=== PATIENT | male | born 1950 | race Caucasian/White ===

== ENCOUNTER → 2017-07-13 10:34 | Outpatient (CLI) | payer MEDICARE, OTHER, SELFPAY ==
[2017-07-13 13:57] LABS: Absolute Lymphocyte Count 1.88 X10^3/ul (0.83-4.51); Absolute Neutrophil Count 6.4 X10^3/uL (2.0-7.7); Basophil# 0.03 X10^3/uL; Basophil% 0.3 % (0-1); Eosinophil# 0.15 X10^3/uL; Eosinophils% 1.6 % (0-5); Hematocrit 43.2 % (40-54); Hemoglobin 14.5 g/dl (13.0-16.5); Lymphocyte # 1.88 X10^3/ul (4.0); Mean Corp Hgb Conc 33.6 g/gl (32-36); Mean Corpuscular Hgb 30.1 pg (27.0-32.0); Mean Corpuscular Volume 89.8 fL (80-94); Mean Platelet Vol. 9.9 fl (6.2-12.0); Monocyte# 0.91 X10^3/uL; Monocyte% 9.7 % (0-10); Neutrophil # 6.41 X10^3/uL (2.7-7.7); Neutrophil % 68.2 % (47-70); POSITIVE COUNT NO; POSITIVE DIFFERENTIAL NO; POSITIVE MORPHOLOGY NO; Platelet Count 294 K/mm3 (150-450); RBC Distribution Width CV 14.7 % (11.6-14.6); RBC Distribution Width SD 48.2 fl (35.1-43.9); Red Blood Count 4.81 M/mm3 (4.6-6.2); White Blood Count 9.4 K/mm3 (4.4-11.0)
[2017-07-13 14:14] LABS: Vitamin D,25 Hydroxy 18.8 ng/mL (29.95-100.01)
[2017-07-13 14:27] LABS: AST(SGOT) 22 U/L (15-37); Alanine Aminotransfer ALT/SGPT 29 U/L (16-61); Albumin, Serum 3.9 g/dL (3.2-5.0); Alkaline Phosphatase 103 U/L (45-117); Anion Gap 9 (5-15); BUN 18 mg/dL (7-18); Chloride 103 mmol/L (98-107); EST Glomerular Filtration Rate 79 mL/min (>60); Est Glom Filt Rate - Afr Amer 96 mL/min (>60); Globulin 4.1 g/dL (2.2-4.2); Glucose 113 mg/dL (74-106); PSA,Total - Annual Screen < 0.01 ng/mL (0.00-4.00); Potassium 4.4 mmol/L (3.5-5.1); Sodium Level 138 mmol/L (136-145); Thyroid Stim Hormone (TSH) 1.12 uIU/mL (0.358-3.74)
[2017-07-14 09:09] LABS: Hep C Antibodies <0.1 s/co ratio (0.0-0.9)
== END ==
PROVIDERS: Family Provider Family Medicine Geriatric Medicine; PCP Family Medicine Geriatric Medicine; Visit Provider Family Medicine Geriatric Medicine
DX: I10 Essential (primary) hypertension (principal); E55.9 Vitamin D deficiency, unspecified; Z12.5 Encounter for screening for malignant neoplasm of prostate; Z13.89 Encounter for screening for other disorder
CPT/HCPCS: 36415; 80048; 80053; 82306; 84153; 84443; 85025; 86803; G0103

== ENCOUNTER → 2017-07-20 10:20 | Outpatient (CLI) | payer MEDICARE, OTHER, SELFPAY ==
--- NOTE | 2017-07-20 10:28 | US_ITS ---
PROCEDURES: ULTRASOUND AORTA REASON FOR EXAM: Male, 67 years old. Screening for abdominal aortic aneurysm. TECHNIQUE: Ultrasound evaluation of the aorta was performed with real-time and static brown-scale imaging. COMPARISON: None. FINDINGS: There is atherosclerotic plaque formation of the abdominal aorta. Aorta measures: Middle 2.5 cm. Distal 2.3 cm. Aorta measure transversely: Middle 2.5 cm. Distal 2.1 cm. Right iliac artery measures: 0.6 cm. Right iliac artery measure transversely: 1.1 cm. Left iliac artery measures: 0.9 cm. Left iliac artery measure transversely: 1.1 cm. There is no demonstrated aneurysm.. US/Aorta IMPRESSION: Atherosclerotic plaques seen in the infrarenal abdominal aorta. No abdominal aortic aneurysm is seen. Electronically Signed: Girish Hernandez MD at 15:54 EDT Tel [phone], Service support ,
--- NOTE | 2017-07-20 10:28 | CT_ITS ---
STUDY: LOW DOSE CT LUNG CANCER SCREENING REASON FOR EXAM: Male, 67 years old. History of a 30 pack-year smoker. RADIATION DOSAGE (If Supplied By Facility): CTDIvol = ( 3.02 ) mGy, DLP = ( 116.64 ) mGycm TECHNIQUE: No contrast was administered. Low dose technique was utilized (average mAS-38 and kVp 120). 1.25 mm axial source images with a slice interval of 1.25-mm were reconstructed in lung windows. 2.5 mm axial source images with a slice interval of 2.5-mm were reconstructed in lung windows. 5.0 mm axial source images with a slice interval of 5.0-mm were reconstructed in soft tissue windows. Nodule measured using lung windows on PACS and/or independent workstation with automated measurement of minimum and maximum diameter. Nodule measurement reported as average diameter rounded to the nearest whole number. Growth is defined as an increase ins size of greater than 1.5 mm. COMPARISON: Comparison is made with prior examination dated May 23, 2014. NODULES: The previously seen 1.3 cm x 1.6 cm nodule in the peripheral aspect of the right upper lobe as decrease in size. It presently measures 1.1 cm. The previously seen 2.2 cm x 2.3 cm well-defined nodule in the medial anterior aspect of the right lower lobe is not seen at this time. Stable 6.4 mm noncalcified nodule in the anterior lateral aspect of the right upper lobe as seen on axial image #126. Stable 4.8 mm noncalcified nodule in the anterior aspect of the right middle lobe as seen on axial image #144. Stable 4 mm nodule in the lateral aspect of the right middle lobe as seen on axial image #146. Aorta: Unremarkable. Coronary arteries: Coronary artery calcification. Mediastinal nodes: Small benign-appearing small mediastinal lymph nodes Other chest and abdominal findings: CT/Low Dose CT Lung Screening IMPRESSION: Lung-RADS category 2 - Continue annual screening with LDCT in 12 months. IMPORTANT NOTES FOR USE: ACR Lung-RADS Version 1.0 Assessment Categories Release Date: July 30, 2013 Category: Coded 0-4 bases on nodule(s) with highest degree of suspicion. Negative screen is defined as categories 1 and 2; a positive screen is defined as categories 3 and 4. Category 3 and 4A nodules that are unchanged on interval CT should be coded as category 2, and individuals returned to screening in 12 months. Category 4X: Category 3 or 4 nodules with additional imaging findings that increase the suspicion of lung cancer, such as spiculation, GGN that doubles in size in 1 year, enlarged lymph notes, etc. Category Modifiers: S (significant finding unrelated to lung cancer) and C (prior history of treated lung cancer) may be added to the 0-4 Lung-RADS Electronically Signed: Girish Hernandez MD at 8:13 EDT Tel [phone], Service support ,
== END ==
PROVIDERS: Family Provider Family Medicine Geriatric Medicine; PCP Family Medicine Geriatric Medicine; Visit Provider Family Medicine Geriatric Medicine
DX: Z12.2 Encounter for screening for malignant neoplasm of respiratory organs (principal); I71.4 Abdominal aortic aneurysm, without rupture; Z87.891 Personal history of nicotine dependence
CPT/HCPCS: 76775; G0297

== ENCOUNTER → 2017-10-10 08:55 | Outpatient (CLI) | payer MEDICARE, OTHER, SELFPAY ==
[2017-10-10 09:38] LABS: PSA,Total- Diagnostic < 0.01 ng/mL (0.0-4.0)
== END ==
PROVIDERS: Family Provider Family Medicine Geriatric Medicine; PCP Family Medicine Geriatric Medicine; Visit Provider Urology
DX: C61 Malignant neoplasm of prostate (principal)
CPT/HCPCS: 36415; 84153

== ENCOUNTER → 2017-10-11 12:08 | Outpatient (CLI) | payer MEDICARE, OTHER, SELFPAY ==
[2017-10-11 13:28] LABS: Absolute Lymphocyte Count 1.44 X10^3/ul (0.83-4.51); Absolute Neutrophil Count 4.7 X10^3/uL (2.0-7.7); Basophil# 0.03 X10^3/uL; Basophil% 0.4 % (0-1); Eosinophil# 0.17 X10^3/uL; Eosinophils% 2.4 % (0-5); Hemoglobin 13.9 g/dl (13.0-16.5); Lymphocyte # 1.44 X10^3/ul (4.0); Lymphocyte % 20.5 % (19-41); Mean Corp Hgb Conc 33.1 g/gl (32-36); Mean Corpuscular Hgb 29.8 pg (27.0-32.0); Mean Corpuscular Volume 89.9 fL (80-94); Mean Platelet Vol. 10.1 fl (6.2-12.0); Monocyte# 0.72 X10^3/uL; Monocyte% 10.3 % (0-10); Neutrophil # 4.65 X10^3/uL (2.7-7.7); Neutrophil % 66.3 % (47-70); Platelet Count 239 K/mm3 (150-450); RBC Distribution Width CV 14.4 % (11.6-14.6); Red Blood Count 4.67 M/mm3 (4.6-6.2)
[2017-10-11 13:30] LABS: POSITIVE COUNT NO; POSITIVE DIFFERENTIAL NO; POSITIVE MORPHOLOGY NO
[2017-10-11 13:56] LABS: AST(SGOT) 22 U/L (15-37); Alanine Aminotransfer ALT/SGPT 29 U/L (16-61); Albumin, Serum 3.9 g/dL (3.2-5.0); Alkaline Phosphatase 102 U/L (45-117); Anion Gap 10 (5-15); BUN 18 mg/dL (7-18); BUN/Creat Ratio 17.3 RATIO (10-20); Calcium,Total 8.9 mg/dL (8.5-10.1); Chloride 102 mmol/L (98-107); Creatinine, Serum 1.04 mg/dL (0.70-1.30); EST Glomerular Filtration Rate 76 mL/min (>60); Est Glom Filt Rate - Afr Amer 92 mL/min (>60); Glucose 105 mg/dL (74-106); Potassium 3.6 mmol/L (3.5-5.1); Protein, Total 7.9 g/dL (6.4-8.2); Sodium Level 137 mmol/L (136-145); Thyroid Stim Hormone (TSH) 0.88 uIU/mL (0.358-3.74)
== END ==
PROVIDERS: Family Provider Family Medicine Geriatric Medicine; PCP Family Medicine Geriatric Medicine; Visit Provider Family Medicine Geriatric Medicine
DX: I10 Essential (primary) hypertension (principal); E55.9 Vitamin D deficiency, unspecified
CPT/HCPCS: 36415; 80053; 82306; 84443; 85025

== ENCOUNTER → 2018-04-12 09:17 | Outpatient (CLI) | payer MEDICARE, OTHER, SELFPAY ==
[2018-04-12 10:11] LABS: PSA,Total- Diagnostic < 0.01 ng/mL (0.0-4.0)
== END ==
PROVIDERS: Family Provider Family Medicine Geriatric Medicine; PCP Family Medicine Geriatric Medicine; Referring Provider Urology; Visit Provider Urology
DX: C61 Malignant neoplasm of prostate (principal)
CPT/HCPCS: 36415; 84153

== ENCOUNTER → 2018-07-24 11:45 | Outpatient (CLI) | payer MEDICARE, OTHER, SELFPAY ==
[2018-07-24 12:52] LABS: Absolute Lymphocyte Count 2.21 X10^3/ul (0.83-4.51); Absolute Neutrophil Count 5.2 X10^3/uL (2.0-7.7); Basophil# 0.04 X10^3/uL; Basophil% 0.5 % (0-1); Eosinophil# 0.19 X10^3/uL; Eosinophils% 2.3 % (0-5); Hematocrit 41.3 % (40-54); Hemoglobin 13.9 g/dl (13.0-16.5); Lymphocyte # 2.21 X10^3/ul (4.0); Mean Corp Hgb Conc 33.7 g/gl (32-36); Mean Corpuscular Hgb 29.6 pg (27.0-32.0); Mean Corpuscular Volume 88.1 fL (80-94); Mean Platelet Vol. 9.8 fl (6.2-12.0); Monocyte# 0.55 X10^3/uL; Monocyte% 6.7 % (0-10); Neutrophil % 63.4 % (47-70); Platelet Count 235 K/mm3 (150-450); RBC Distribution Width CV 14.2 % (11.6-14.6); RBC Distribution Width SD 45.2 fl (35.1-43.9); Red Blood Count 4.69 M/mm3 (4.6-6.2); White Blood Count 8.2 K/mm3 (4.4-11.0)
[2018-07-24 12:54] LABS: Vitamin D,25 Hydroxy 19.9 ng/mL (29.95-100.01)
[2018-07-24 12:55] LABS: POSITIVE COUNT NO; POSITIVE DIFFERENTIAL NO; POSITIVE MORPHOLOGY NO
[2018-07-24 13:12] LABS: ALB/GLOB Ratio 0.9 RATIO (0.9-2.4); AST(SGOT) 19 U/L (15-37); Alanine Aminotransfer ALT/SGPT 31 U/L (16-61); Albumin, Serum 3.7 g/dL (3.2-5.0); Alkaline Phosphatase 115 U/L (45-117); Anion Gap 7 (5-15); BUN 17 mg/dL (7-18); Calcium,Total 8.9 mg/dL (8.5-10.1); Chloride 104 mmol/L (98-107); Creatinine, Serum 1.06 mg/dL (0.70-1.30); EST Glomerular Filtration Rate 74 mL/min (>60); Est Glom Filt Rate - Afr Amer 90 mL/min (>60); Globulin 4.2 g/dL (2.2-4.2); Glucose 133 mg/dL (74-106); PSA,Total - Annual Screen < 0.01 ng/mL (0.00-4.00); Potassium 3.9 mmol/L (3.5-5.1); Protein, Total 7.9 g/dL (6.4-8.2); Sodium Level 138 mmol/L (136-145); Thyroid Stim Hormone (TSH) 1.22 uIU/mL (0.358-3.74)
== END ==
PROVIDERS: Family Provider Family Medicine Geriatric Medicine; PCP Family Medicine Geriatric Medicine; Visit Provider Family Medicine Geriatric Medicine
DX: E11.9 Type 2 diabetes mellitus without complications (principal); I10 Essential (primary) hypertension; E55.9 Vitamin D deficiency, unspecified; Z12.5 Encounter for screening for malignant neoplasm of prostate
CPT/HCPCS: 36415; 80053; 82306; 84153; 84443; 85025; G0103

== ENCOUNTER → 2018-07-31 07:42 | Outpatient (CLI) | payer MEDICARE, OTHER, SELFPAY ==
--- NOTE | 2018-07-31 07:45 | CT_ITS ---
STUDY: LOW DOSE CT LUNG CANCER SCREENING REASON FOR EXAM: Male, 68 years old. 30 pack-year history. RADIATION DOSAGE (If Supplied By Facility): CTDIvol = ( 3.40 ) mGy, DLP = ( 119.53 ) mGycm TECHNIQUE: No contrast was administered. Low dose technique was utilized (average mAS-38 and kVp 120). 1.25 mm axial source images with a slice interval of 1.25-mm were reconstructed in lung windows. 2.5 mm axial source images with a slice interval of 2.5-mm were reconstructed in lung windows. 5.0 mm axial source images with a slice interval of 5.0-mm were reconstructed in soft tissue windows. Nodule measured using lung windows on PACS and/or independent workstation with automated measurement of minimum and maximum diameter. Nodule measurement reported as average diameter rounded to the nearest whole number. Growth is defined as an increase ins size of greater than 1.5 mm. COMPARISON: July 20, 2017. NODULES: Nodule #: 1 Density: Solid Lung location: Left upper lobe: 1.9 cm from pleura Location in series: Series Number: 1002 Image: 70 Size - D1 x D2 mm: 5 x 2 mm: 4 mm average diameter Margin: Fuzzy Shape: Oval Calcification: No Fat: No Temporal comparison: Stable Nodule #: 2 Density: Solid Lung location: Right upper lobe: Pleural-based Location in series: Series Number: 1002 Image: 84 Size - D1 x D2 mm: 8 x 6 mm: 7 mm average diameter Margin: Irregular Shape: Calcification: No Fat: No Temporal comparison: Stable Nodule #: 3 Density: Solid Lung location: Left upper lobe: 1.3 cm from pleura Location in series: Series Number: 1002 Image: 106 Size - D1 x D2 mm: 4 x 3 mm: 4 mm average diameter Margin: Smooth Shape: Oval Calcification: No Fat: No Temporal comparison: Stable Nodule #: 4 Density: Solid Lung location: Left upper lobe: Along the oblique fissure Location in series: Series Number: 1002 Image: 119 Size - D1 x D2 mm: 7 x 6 mm: 7 mm average diameter Margin: Smooth Shape: Rounded Calcification: No Fat: No Temporal comparison: Stable Nodule #: 5 Density: Solid Lung location: Right upper lobe: 1.5 cm from pleura Location in series: Series Number: 1002 Image: 120 Size - D1 x D2 mm: 5 x 6 mm: 6 mm average diameter Margin: Smooth Shape: Brown Calcification: No Fat: No Temporal comparison: Stable Nodule #: 6 Density: Solid Lung location: Right upper lobe: Pleural-based Location in series: Series Number: 1002 Image: 140 Size - D1 x D2 mm: 854 mm: 6 mm average diameter Margin: Smooth Shape: Oval Calcification: No Fat: No Temporal comparison: Stable Nodule #: 7 Density: Solid Lung location: Right middle lobe: 0.8 cm from pleura Location in series: Series Number: 1002 Image: 140 Size - D1 x D2 mm: 5 x 6 mm: 6 mm average diameter Margin: Smooth Shape: Round Calcification: No Fat: No Temporal comparison: Stable Nodule #: 8 Density: Solid Lung location: Left lower lobe: Pleural-based Location in series: Series Number: 1002 Image: 152 Size - D1 x D2 mm: 22 x 2 mm: 2 mm average diameter Margin: Smooth Shape: Rounded Calcification: No Fat: No Temporal comparison: Stable Total lung nodules (excluding granulomas): 8 Emphysema: No Endobronchial lesion: Not Aorta: No evidence of aneurysm. Coronary arteries: Normal Heart: Normal in size Pulmonary artery: Normal in size Mediastinal nodes: There are multiple small mediastinal lymph nodes unchanged from prior study. Other chest and abdominal findings: There are degenerative changes of the thoracic spine. CT/Low Dose CT Lung Screening IMPRESSION: Lung-RADS category 2 - Continue annual screening with LDCT in 12 months. IMPORTANT NOTES FOR USE: ACR Lung-RADS Version 1.0 Assessment Categories Release Date: July 30, 2013 Category: Coded 0-4 bases on nodule(s) with highest degree of suspicion. Negative screen is defined as categories 1 and 2; a positive screen is defined as categories 3 and 4. Category 3 and 4A nodules that are unchanged on interval CT should be coded as category 2, and individuals returned to screening in 12 months. Category 4X: Category 3 or 4 nodules with additional imaging findings that increase the suspicion of lung cancer, such as spiculation, GGN that doubles in size in 1 year, enlarged lymph notes, etc. Category Modifiers: S (significant finding unrelated to lung cancer) and C (prior history of treated lung cancer) may be added to the 0-4 Lung-RADS Electronically Signed: Geovani Wilkinson DO at 17:14 EDT Tel [phone], Service support ,
--- NOTE | 2018-07-31 08:02 | US_ITS ---
PROCEDURES: ULTRASOUND AORTA REASON FOR EXAM: Male, 68 years old. AAA screening, smoking history. TECHNIQUE: Ultrasound evaluation of the aorta was performed with real-time and color Doppler, and static brown-scale imaging. COMPARISON: CT low-dose 07/31/2018, ultrasound aorta 07/20/2017, PET/CT 06/10/2014. FINDINGS: There are proximal 26 x 26 mm, mid 25 x 26 mm, distal 27 x 30 mm. Minimal aneurysmal ectasia of the distal infrarenal abdominal aorta. Right common iliac 8 x 10 mm and left 8 x 10 mm, normal. There is normal arterial flow aortoiliac. There is normal venous flow within the IVC. Atherosclerotic plaque is observed multifocal within the aorta. US/Aorta IMPRESSION: Aortic atherosclerosis. Minimal aneurysmal ectasia of the distal infrarenal abdominal aorta with a maximum dimension of 3 cm. This is concordant with the fusiform aneurysmal ectasia of the aorta seen on PET CT scan of 06/10/2014 at which time the greatest dimension of the aneurysm was 2.97 cm, no significant change. Electronically Signed: Nikunj Torre MD at 13:01 EDT Tel , Service support ,
== END ==
PROVIDERS: Family Provider Family Medicine Geriatric Medicine; PCP Family Medicine Geriatric Medicine; Referring Provider Family Medicine Geriatric Medicine; Visit Provider Family Medicine Geriatric Medicine
DX: I71.4 Abdominal aortic aneurysm, without rupture (principal); Z87.891 Personal history of nicotine dependence
CPT/HCPCS: 76775; G0297

== ENCOUNTER → 2018-10-20 08:45 | Outpatient (CLI) | payer MEDICARE, OTHER, SELFPAY ==
[2018-10-20 09:51] LABS: PSA,Total- Diagnostic < 0.01 ng/mL (0.0-4.0)
== END ==
PROVIDERS: Family Provider Family Medicine Geriatric Medicine; PCP Family Medicine Geriatric Medicine; Referring Provider Urology; Visit Provider Urology
DX: C61 Malignant neoplasm of prostate (principal)
CPT/HCPCS: 84153

== ENCOUNTER → 2018-10-25 08:50 | Outpatient (CLI) | payer MEDICARE, OTHER, SELFPAY ==
[2018-10-25 11:29] LABS: Absolute Lymphocyte Count 1.63 X10^3/uL (0.83-4.51); Absolute Neutrophil Count 6.6 X10^3/uL (2.0-7.7); Basophil# 0.04 X10^3/uL; Basophil% 0.4 % (0-1); Eosinophil# 0.19 X10^3/uL; Eosinophils% 2.1 % (0-5); Hematocrit 43.5 % (40-54); Hemoglobin 14.5 g/dL (13.0-16.5); Lymphocyte # 1.63 X10^3/ul (4.0); Lymphocyte % 17.9 % (19-41); Mean Corp Hgb Conc 33.3 g/dL (32-36); Mean Corpuscular Hgb 29.7 pg (27.0-32.0); Mean Corpuscular Volume 89.1 fL (80-94); Mean Platelet Vol. 9.9 fl (6.2-12.0); Monocyte# 0.68 X10^3/uL; Monocyte% 7.4 % (0-10); NRBC Flagged by Analyzer 0 % (0-5); Neutrophil # 6.56 X10^3/uL (2.7-7.7); Neutrophil % 71.9 % (47-70); Platelet Count 247 K/mm3 (150-450); RBC Distribution Width CV 14.1 % (11.6-14.6); Red Blood Count 4.88 M/mm3 (4.6-6.2); White Blood Count 9.1 K/mm3 (4.4-11.0)
[2018-10-25 11:47] LABS: Vitamin D,25 Hydroxy 25.4 ng/mL (29.95-100.01)
[2018-10-25 12:01] LABS: ALB/GLOB Ratio 0.8 RATIO (0.9-2.4); AST(SGOT) 24 U/L (15-37); Alanine Aminotransfer ALT/SGPT 39 U/L (16-61); Albumin, Serum 3.7 g/dL (3.2-5.0); Alkaline Phosphatase 101 U/L (45-117); Anion Gap 8 (5-15); BUN 15 mg/dL (7-18); BUN/Creat Ratio 13.6 RATIO (10-20); Calcium,Total 8.7 mg/dL (8.5-10.1); Chloride 99 mmol/L (98-107); EST Glomerular Filtration Rate 71 mL/min (>60); Est Glom Filt Rate - Afr Amer 86 mL/min (>60); Globulin 4.4 g/dL (2.2-4.2); Glucose 137 mg/dL (74-106); Potassium 3.7 mmol/L (3.5-5.1); Protein, Total 8.1 g/dL (6.4-8.2); Sodium Level 133 mmol/L (136-145); Thyroid Stim Hormone (TSH) 1.11 uIU/mL (0.358-3.74)
== END ==
PROVIDERS: Family Provider Family Medicine Geriatric Medicine; PCP Family Medicine Geriatric Medicine; Visit Provider Family Medicine Geriatric Medicine
DX: E11.9 Type 2 diabetes mellitus without complications (principal); I10 Essential (primary) hypertension; E55.9 Vitamin D deficiency, unspecified
CPT/HCPCS: 36415; 80053; 82306; 84443; 85025

== ENCOUNTER → 2019-04-25 10:10 | Outpatient (CLI) | payer MEDICARE, OTHER, SELFPAY ==
[2019-04-25 11:09] LABS: PSA,Total- Diagnostic < 0.01 ng/mL (0.0-4.0)
== END ==
PROVIDERS: PCP Family Medicine Geriatric Medicine; Referring Provider Urology; Visit Provider Urology
DX: C61 Malignant neoplasm of prostate (principal)
CPT/HCPCS: 36415; 84153

== ENCOUNTER → 2019-05-03 10:14 | Outpatient (CLI) | payer MEDICARE, OTHER, SELFPAY ==
[2019-05-03 12:27] LABS: Absolute Lymphocyte Count 1.95 X10^3/uL (0.83-4.51); Absolute Neutrophil Count 5.4 X10^3/uL (2.0-7.7); Basophil# 0.05 X10^3/uL; Basophil% 0.6 % (0-1); Eosinophil# 0.11 X10^3/uL; Eosinophils% 1.3 % (0-5); Hematocrit 40.5 % (40-54); Hemoglobin 12.9 g/dL (13.0-16.5); Lymphocyte # 1.95 X10^3/ul (4.0); Lymphocyte % 23.4 % (19-41); Mean Corp Hgb Conc 31.9 g/dL (32-36); Mean Corpuscular Hgb 27.7 pg (27.0-32.0); Mean Corpuscular Volume 87.1 fL (80-94); Mean Platelet Vol. 10.4 fl (6.2-12.0); Monocyte# 0.76 X10^3/uL; Monocyte% 9.1 % (0-10); NRBC Flagged by Analyzer 0 % (0-5); Neutrophil # 5.44 X10^3/uL (2.7-7.7); Neutrophil % 65.2 % (47-70); Platelet Count 258 K/mm3 (150-450); RBC Distribution Width CV 15.5 % (11.6-14.6); RBC Distribution Width SD 49.3 fl (35.1-43.9); Red Blood Count 4.65 M/mm3 (4.6-6.2); White Blood Count 8.3 K/mm3 (4.4-11.0)
[2019-05-03 12:49] LABS: Vitamin D,25 Hydroxy 26.8 ng/mL (29.95-100.01)
[2019-05-03 13:03] LABS: ALB/GLOB Ratio 0.8 RATIO (0.9-2.4); AST(SGOT) 27 U/L (15-37); Alanine Aminotransfer ALT/SGPT 39 U/L (16-61); Albumin, Serum 3.9 g/dL (3.2-5.0); Alkaline Phosphatase 105 U/L (45-117); Anion Gap 7 (5-15); BUN 18 mg/dL (7-18); Calcium,Total 9.2 mg/dL (8.5-10.1); Chloride 100 mmol/L (98-107); Creatinine, Serum 1.29 mg/dL (0.70-1.30); EST Glomerular Filtration Rate 59 mL/min (>60); Est Glom Filt Rate - Afr Amer 71 mL/min (>60); Globulin 4.7 g/dL (2.2-4.2); Glucose 130 mg/dL (74-106); Potassium 3.5 mmol/L (3.5-5.1); Protein, Total 8.6 g/dL (6.4-8.2); Sodium Level 135 mmol/L (136-145); Thyroid Stim Hormone (TSH) 0.85 uIU/mL (0.358-3.74)
== END ==
PROVIDERS: PCP Family Medicine Geriatric Medicine; Visit Provider Family Medicine Geriatric Medicine
DX: E11.9 Type 2 diabetes mellitus without complications (principal); E55.9 Vitamin D deficiency, unspecified; I10 Essential (primary) hypertension
CPT/HCPCS: 36415; 80053; 82306; 84443; 85025

== ENCOUNTER 2019-06-08 07:10 | Emergency (ER) | payer MEDICARE, OTHER, SELFPAY ==
[2019-06-08 07:11] VITALS: BP 196/106; PULSE 85; RESP 18; TEMP 36.6; O2SAT 97; BMI 27.8
--- NOTE | 2019-06-08 07:26 | EKG12_ITS ---
Test Reason : HTN Blood Pressure : / mmHG Vent. Rate : 064 BPM Atrial Rate : 064 BPM P-R Int : 138 ms QRS Dur : 100 ms QT Int : 416 ms P-R-T Axes : 046 -01 046 degrees QTc Int : 429 ms Normal sinus rhythm with sinus arrhythmia Normal ECG Confirmed by KEL VARGAS, KATLIN ([id number]), field map editor AIME ALBERTO ([id number]) on 06/11/2019 3:34:42 PM Referred By: FREDERIC Confirmed By:KATLIN BEGUM MD
--- NOTE | 2019-06-08 07:27 | ED.VIS.GEN ---
History of Present Illness Chief Complaint: Hypertension Informant: Patient Narrative: Patient is largely asymptomatic he feels slightly lightheaded but he has no vertigo or disequilibrium or any dizziness, he took his blood pressure at home and it was elevated thus he came to the emergency department. He is worried because he had a recent stroke and wants to make sure that his blood pressure is normal so he does not chance any other pathologies. He denies any chest pain shortness of breath any back pain or tearing sensation he has no urinary complaints, he has no headache or vision changes. He has no paresthesias he has left-sided weakness which has not changed he is able to ambulate he has difficulty moving his left arm however this has not changed, he has a facial droop which has not changed. He has no speech difficulties or any new neurological symptoms. Past Medical History - Allergies and Home Meds Allergies/Adverse Reactions: Allergies No Known Allergies Allergy (Verified 06/08/19 07:13) Primary Care Physician: Carlyle Ren Chi, MD [Primary Care Provider] - Past Medical History: - - I reviewed his medical history, his pertinent medical history is recent CVA hypertension hypercholesterolemia and diabetes. Surgical History: - - thoracentesis, right knee surgery, prostate surgery today Smoking Status: Former smoker - Family History Maternal Family History: Reports: - - lived to 96 Paternal Family History: Reports: - - father lived to 75 Review of Systems All systems negative except as indicated General: Denies: Fever Eyes: Denies: Visual changes - bilaterally, Diplopia Cardiovascular: Denies: Chest pain Respiratory: Denies: Dyspnea, Cough Gastrointestinal: Denies: Abdominal pain, Nausea Genitourinary: Denies: Dysuria Musculoskeletal: Denies: Myalgias, Arthralgias Skin: Denies: Rash Neurological: Reports: - - Chronic left sided deficits that have been unchanged. Denies: Headache Endocrine: Denies: Polyuria Physical Exam Vital Signs/Narrative: Vital Signs Temp Pulse Resp BP Pulse Ox 06/08/19 07:11 97.9 F 85 18 196/106 H 97 General: Well nourished, Well developed Head: Normocephalic Eyes: Perrl ENT: - - Slightly dry mucous membranes Neck: Supple Cardiovascular: Regular rate, Regular rhythm Respiratory: No distress, CTA bilaterally Abdomen: Soft, Nontender Back: Nontender, Normal Inspection Extremities: No edema Skin: Normal color Neurological: - - There is left-sided facial droop weakness of the left arm and slight weakness of the left leg. He has a normal speech, he is lucid coherent oriented with no other deficits. Diagnostic/Tx/Re-eval - Rhythm Strip Rhythm Strip: Sinus Rhythm Rate: 64 Ectopy: None - EKG Initial EKG Interpretation: - - Normal sinus rhythm with a rate of 64. Normal [place] interval. Normal QTc interval. No ischemic changes. Interpreted by emergency doctor - Medical Decision Making Patient was given IV fluids and hydralazine. He did admit upon questioning that he ate a very salty dinner last night. He is currently asymptomatic his blood pressure is improved and will be discharged with education. ED Disposition - Plan for ED Patient: Disposition: Home or Assisted Living Diagnosis: HTN (hypertension) Instructions: HYPERTENSION, Established Referrals: Carlyle Ren Chi, MD [Primary Care Provider] - 3-5 Days
[2019-06-08 07:38] VITALS: BP 183/87; PULSE 66; RESP 12; O2SAT 97
[2019-06-08 07:53] LABS: ALB/GLOB Ratio 0.8 RATIO (0.9-2.4); AST(SGOT) 17 U/L (15-37); Alanine Aminotransfer ALT/SGPT 21 U/L (16-61); Albumin, Serum 3.6 g/dL (3.2-5.0); Alkaline Phosphatase 108 U/L (45-117); Anion Gap 5 (5-15); BUN 14 mg/dL (7-18); Chloride 104 mmol/L (98-107); EST Glomerular Filtration Rate 79 mL/min (>60); Est Glom Filt Rate - Afr Amer 96 mL/min (>60); Estimated Creatinine Clearance 76.35 ml/min; Globulin 4.6 g/dL (2.2-4.2); Glucose 161 mg/dL (74-106); Potassium 3.6 mmol/L (3.5-5.1); Protein, Total 8.2 g/dL (6.4-8.2); Sodium Level 136 mmol/L (136-145)
[2019-06-08] MEDS: hydrALAZINE 20 MG/ML Vial 5 MG IV (07:58)
[2019-06-08 08:23] VITALS: BP 183/98; PULSE 91; RESP 21; O2SAT 97
== END 2019-06-08 08:33 | disposition home or self-care (01) ==
PROVIDERS: Emergency Provider Emergency Medicine; PCP Family Medicine Geriatric Medicine
DX: I10 Essential (primary) hypertension (principal); I69.354 Hemiplegia and hemiparesis following cerebral infarction affecting left non-dominant side; I69.392 Facial weakness following cerebral infarction; E78.00 Pure hypercholesterolemia, unspecified; E11.9 Type 2 diabetes mellitus without complications; Z79.82 Long term (current) use of aspirin; Z79.84 Long term (current) use of oral hypoglycemic drugs; Z87.891 Personal history of nicotine dependence
CPT/HCPCS: 80053; 93005; 96374; 99283; J7040; A4216

== ENCOUNTER 2019-06-12 10:30 | Outpatient (RCR) | payer MEDICARE, OTHER, SELFPAY ==
--- NOTE | 2019-05-29 10:49 | HP.PTEVAL ---
Patient's Visit Information LUKE JURADO is a 68 year old M referred to Physical Therapy by VIC FELTON with a diagnosis of CVA. Date of Evaluation: 05/29/19 Physical Therapist: Jesus Alberto Manuel, DPT, OCS, CSCS - Visit Plan Plan: No skilled PT required at this time - Subjective Findings: 3.5 weks ago had a stroke 98% blocked in artery. Life flighted to [facility]. Woke up that morning with wierdness in L arm. Went to the store adn felt a little off steadyness vizcarra. Called adn was not understandable. 911 dialed. Squad called to [facility]. Life flighted. Had different scans and found a stroke. Put in a stent through groin. 2 days in intensive care then to 9th floor for a night then released. Home two weeks ago. Worked on speech alot. L arm improving but still feels wild and dyscoordinated. Holding multiple things was challenging but now 80% better. Shoulder L can feel awkward to put on belt and buckle it. Has not driven yet. F/U with neurologist soon in two weeks. Legs feel normal. Walking through [place] as they have a couple acres feels pretty normal now. Balance feels OK for the most part. sometimes after sitting for a while getting up is a quick challenge. No falls since left hospital. Been up and down steps to do the laundry. Basic ADLs are OK outside of L hand challenges. He makes himself use the left hand as safety allows. Is generally very active and likes to burgess arrowheads in the spring. Slightly more cautious on the steps.Drove to therapy himself today. - Objective L slight facial droop. FW head posture. Good spinal movements. I with transfers from chair and bed withotu UE. Steps reciprocal without rail. Walks easily without LOB today. VOR walking without any LOB. UE AROM WFL, coordination on L side at slight defiicts and willbe further evaluated by OT today. LE AROM WFL, has some HS tightness B at -25 90/90 test and gastroc tightness at 0 DF. reflexes 2/3 in patella and achilles B. Strength is 4+/5 B LE without asymmetries or myotomal problems. Sensation shows slight deficits to two point discrimination on L vs R but otherwise does well grossly wiht light touch. Coordination to reciprocal toe and heel tapping and heel to dee test are good and symmetrical. PROM LE joints WFL. Oriented to place and day and person. Was outside subjectively for 8-9 hours last Tuesday withotu dificts picking up sticks and walking through the yard. Converses approriately without deficits. 68/80 FGA score. - Balance Scores Functional Gait Assessment Score: 30 % Disability: 0 CATSIB Score (Max score 120 seconds): 120 - Rehabilitation Potential Physical Therapy Diagnosis: CVA - Anticipated Interventions Thank you for the opportunity to evaluate your patient. For Medicare and Medicare HMO plans, please review the plan of care and approve it. It will need to be FAXED BACK to us at [phone] for Medicare purposes. For Medicare only, by signing this I certify the plan of care. Please let me know if there are questions or concerns regarding this plan of care. Physician Signature: Date:
--- NOTE | 2019-05-29 12:43 | HP.SP.AD ---
History - History Date of Eval: 05/29/19 Medical Diagnosis (from RX): CVA Date of Onset of Diagnosis: 05/01/19 Previous speech therapy: Yes Results: While inpatient at [facility]. Other Relevant Medical History/Diagnoses/Surgery: Prostate Cancer. Smoking Status: Former smoker Hx Smoking: Yes - 1/2 PPD FOR 30 YRS - Pain Is pain an issue with your current prescribed condition?: No - Personal Right Hearing Abillity: Normal Left Hearing Abillity: Normal Visual Assistive Devices: Glasses Patients Living Arrangements: With Significant Other Patient Allergies - Allergies Allergies No Known Allergies Allergy (Verified 08/12/16 13:10) Subjective Oral Motor - Subjective Patient Reports: Slurred Speech Facial Drooping: Left - Comments Comments: Very mild left droop. Objective Oral Motor - Oral Status Dentition: WNL, Missing Teeth - Labial Impairment: WNL Observation at Rest: Left Droop Closure: WNL Pucker: WNL Retraction: WNL Alternating Pucker/Retraction: WNL Involuntary Movement noted: No - Lingual Impairment: WNL Protrusion: WNL Retraction: WNL Lateralization: WNL Involuntary Movement: No - Jaw Impairment: WNL Opening: WNL Closing: WNL - Respiratory Status Respiratory Status: Room Air Objective Cog/Ling/Com - Test Administered Axvhlkqzz-Giqvexgbdo-Yqondoipacspt Assessment Administered: Yes Yxrgzbwet-Wmnybqdxae-Apsrpcxnrzihy Assessment: Cognitive ? Linguistic skills were evaluated using patient/family interview, skilled observation and informal evaluation through tasks completed by the patient. - Orientation Orientation: Person, Birthdate, Medical Diagnosis - Answer Yes/No Questions Simple: WNL Complex: WNL - Cause & Effect Cause & Effect: WNL - Problem Solving Simple: WNL Complex: WNL - Judgement & Reasoning Judgement/Reasoning: WNL - Deductive Reasoning Deductive Reasoning: WNL Objective Dysarthira/Motor - Speech Intelligibility Phonemes: WNL Single Words: WNL Phrases: WNL Sentences: WNL Conversation: WNL - Volume Volume: WNL - Sounds Sounds in Error: None noted in conversation. - Consistency w/Multiple Repetitions Words: WNL Phrases: WNL - Observation Observation of Apraxia of Speech: No Oral Groping for Placement: No Inconsistent Errors: No Plan - Plan Plan: Speech therapy is not necessary as the patient has within functional skills. - Recommendations Treatment Warranted: No Education - Patient has Indicated that the Following Identified Educational Needs: None The Patient has indicated that they have no educational or learning abilities that may effect their care.: Yes - Patient Instruction Patient Education: Diagnosis Person Taught: Patient
--- NOTE | 2019-05-29 15:40 | HP.OTEVAL ---
Patient's Visit Information LUKE JURADO is a 68 year old M, referred to Occupational Therapy by VIC FELTON, with a diagnosis of Acute R MCA Stroke. Date of Evaluation: 05/29/19 Occupational Therapist: Sada Sawyer - Subjective Subjective: Pt seen for initial occupational therapy after suffering Acute Rt MCA stroke, 05/08/19. Pt had stent placed 05/09/19. Pt admitted to hospital 4 days with 3 of those days in ICU at [facility]. Pt demo decreased coordination and strength of L UE. Pt lives w/ spouse 2 story house with main floor setup, to enter home 25-30ft walk with 3 steps to patio to 2 steps up to house no handrails. Laundry in basement with w/ flight of steps 1 HR. Indep w/ BADLs/IADLs, does laundry and simple meal prep. Driving prior to stroke, not driving at this time. Pt states a difficult time with fasteners, donning a coat and completing simple meal prep tasks, manipulating containers. Pt states completing all BADL tasks, but with extra time needed. Pt R hand dominent. Pt states no peripheral vision concerns. Hobbies: hiking, bird watching, hunting arrow heads. - Objective Objective/Observation: decreased coordination, strength and indep w/ BADL/IADL tasks L UE - ROM ROM Comments: BUE WFL - Strength Email Marketing Executive: R 95#, L 90# Lateral Pinch: R 20#, L 19# Tripod Pinch: R 18#, L 16# Strength Comments: Generalized MMT R 4+/5, L 4/5 - Edema Other: No edema noted - Sensation Sensation Comments: No numbness or tingling per pt - Nine Hole Peg Right: 26.7 seconds Left: 35.9 seconds Comments: Right hand dominent - Quick DASH-Disab of Arm,Shoulder& Hand Quick DASH Score: 11.3625 - Goals Goal:: Pt will progress w/ L chief lifestyle officer strength by 3# to assist w/ meal prep tasks independently. Goal:: Pt will demo increased L hand coordination skills to decrease L hand 9 hole peg test time by 7 seconds to demo increased coordination skills for BADL/IADL tasks. Goal:: Pt will demo increased indep to carry cup without spillage and open close containers for simple meal prep tasks independently. Goal:: Pt will be edcuated on L hand coordination HEP with good understanding and demo 100% Goal:: Pt will be educated on L hand strengthening HEP with good understanding and demo 100%x - Rehabilitation General Assessment: Pt seen for initial occupational therapy after suffering Acute Rt MCA stroke, 05/08/19. Pt had stent placed 05/09/19. Pt demonstrates decreased coordination and strength to complete L handed fine motor and bilateral coordination tasks. Pt would benefit from direct occupational therapy services to increase L UE coordination and strength to assist w/ BADL/IADL tasks independently w/o extra time needed to increase indep to return to PLOF 1-2x/wk x 4-6wks Rehabilitation Potential: Excellent - Anticipated Interventions Anticipated Interventions: Strengthening, Joint Protection/Energy Conservation, Fine Motor Coord/Alex, Neuro Reeducation, ADL Training, Education re assistive Equipment, Education re Diagnosis, Home Program - Visit Plan Frequency: 1-2x /Week Duration: 4-6 Weeks General Plan: Pt seen for initial occupational therapy after suffering Acute Rt MCA stroke, 05/08/19. Pt had stent placed 05/09/19. Pt demonstrates decreased coordination and strength to complete L handed fine motor and bilateral coordination tasks. Pt would benefit from direct occupational therapy services to increase L UE coordination and strength to assist w/ BADL/IADL tasks independently w/o extra time needed to increase indep to return to PLOF 1-2x/wk x 4-6wks TEXT: Thank you for the opportunity to evaluate your patient. For Medicare and Medicare HMO plans, please review the plan of care and approve it. It will need to be FAXED BACK to us at [phone] for Medicare purposes. Please let me know if there are questions or concerns regarding this plan of care. Physician Signature: Date:
== END 2019-06-12 19:00 | disposition home or self-care (01) ==
LOC: OT 10:30
PROVIDERS: PCP Family Medicine Geriatric Medicine; Referring Provider Family Medicine Geriatric Medicine; Visit Provider Family Medicine Geriatric Medicine
DX: I63.511 Cerebral infarction due to unspecified occlusion or stenosis of right middle cerebral artery (principal); R47.1 Dysarthria and anarthria
CPT/HCPCS: 92523; 97110; 97162; 97165; 97530

== ENCOUNTER → 2019-07-26 11:27 | Outpatient (CLI) | payer MEDICARE, OTHER, SELFPAY ==
[2019-07-26 12:11] LABS: Absolute Lymphocyte Count 1.48 X10^3/uL (0.83-4.51); Absolute Neutrophil Count 5.2 X10^3/uL (2.0-7.7); Basophil# 0.06 X10^3/uL; Basophil% 0.8 % (0-1); Eosinophil# 0.12 X10^3/uL; Eosinophils% 1.6 % (0-5); Hematocrit 34.7 % (40-54); Hemoglobin 11.2 g/dL (13.0-16.5); Lymphocyte # 1.48 X10^3/ul (4.0); Lymphocyte % 19.8 % (19-41); Mean Corp Hgb Conc 32.3 g/dL (32-36); Mean Corpuscular Hgb 27.9 pg (27.0-32.0); Mean Corpuscular Volume 86.3 fL (80-94); Mean Platelet Vol. 9.6 fl (6.2-12.0); Monocyte# 0.57 X10^3/uL; Monocyte% 7.6 % (0-10); NRBC Flagged by Analyzer 0 % (0-5); Neutrophil # 5.22 X10^3/uL (2.7-7.7); Neutrophil % 69.8 % (47-70); Platelet Count 313 K/mm3 (150-450); RBC Distribution Width CV 14.6 % (11.6-14.6); RBC Distribution Width SD 46.8 fl (35.1-43.9); Red Blood Count 4.02 M/mm3 (4.6-6.2); White Blood Count 7.5 K/mm3 (4.4-11.0)
[2019-07-26 12:48] LABS: Vitamin D,25 Hydroxy 32.1 ng/mL
[2019-07-26 12:49] LABS: ALB/GLOB Ratio 0.9 RATIO (0.9-2.4); AST(SGOT) 19 U/L (15-37); Alanine Aminotransfer ALT/SGPT 22 U/L (16-61); Albumin, Serum 3.6 g/dL (3.2-5.0); Alkaline Phosphatase 96 U/L (45-117); Anion Gap 8 (5-15); BUN 22 mg/dL (7-18); BUN/Creat Ratio 19.8 RATIO (10-20); Calcium,Total 9.1 mg/dL (8.5-10.1); Chloride 104 mmol/L (98-107); Creatinine, Serum 1.11 mg/dL (0.70-1.30); EST Glomerular Filtration Rate 70 mL/min (>60); Est Glom Filt Rate - Afr Amer 85 mL/min (>60); Globulin 4.2 g/dL (2.2-4.2); Glucose 110 mg/dL (74-106); PSA,Total - Annual Screen < 0.01 ng/mL (0.00-4.00); Protein, Total 7.8 g/dL (6.4-8.2); Sodium Level 136 mmol/L (136-145); Thyroid Stim Hormone (TSH) 0.56 uIU/mL (0.358-3.74)
== END ==
LOC: LAB.FUTURE 11:30 → LAB 07-27 06:40
PROVIDERS: PCP Family Medicine Geriatric Medicine; Referring Provider Family Medicine Geriatric Medicine; Visit Provider Family Medicine Geriatric Medicine
DX: E11.9 Type 2 diabetes mellitus without complications (principal); E55.9 Vitamin D deficiency, unspecified; I10 Essential (primary) hypertension; Z12.5 Encounter for screening for malignant neoplasm of prostate
CPT/HCPCS: 36415; 80053; 82306; 84153; 84443; 85025; G0103

== ENCOUNTER → 2019-09-20 09:39 | Outpatient (CLI) | payer MEDICARE, OTHER, SELFPAY ==
[2019-09-06 18:21] VITALS: BMI 27.8
--- NOTE | 2019-09-20 09:40 | ART_ITS ---
Reason For Study: Claudication Procedure A bilateral lower extremity continuous wave Doppler with analog waveform analysis and ankle brachial indexes. Took pt brachial pressures twice and gave prelim to Argelia in [facility] office. Left Segmental Pressures Left brachial= 181mmHg. Left posterior tibial artery = 97mmHg. Left dorsalis pedis artery = 103mmHg. Left digit = 50 mmHg. The left dorsalis pedis waveforms are biphasic. The left posterior tibial artery waveforms are biphasic. Right Segmental Pressures Right brachial= 189mmHg. Right posterior tibial artery = 124mmHg. Right dorsalis pedis artery = 122mmHg. Right digit = 64 mmHg. The right dorsalis pedis waveforms are biphasic. The right posterior tibial artery waveforms are biphasic. Indices The right ankle brachial index by the dorsalis pedis is 0.65. The right ankle brachial index by the posterior tibial artery is 0.66. The right digital-brachial index is 0.34. The left ankle brachial index by the dorsalis pedis is 0.54. The left ankle brachial index by the posterior tibial artery is 0.54. The left digital-brachial index is 0.26. Interpretation Summary Moderately-severe bilateral lower extremity arterial occlusive disease Abnormal bilateral extremity digital brachial indices with significantly flattened digital waveforms consistent with distal small vessel disease Ordering Physician: Netta Chaparro Referring Physician: Carlyle Ren Chi Performed By: Dorita Silva RVT and Student
== END ==
PROVIDERS: PCP Family Medicine Geriatric Medicine; Referring Provider Nurse Practitioner Family; Visit Provider Nurse Practitioner Family
DX: I73.9 Peripheral vascular disease, unspecified (principal)
CPT/HCPCS: 93922

== ENCOUNTER → 2019-09-24 10:14 | Outpatient (CLI) | payer MEDICARE, OTHER, SELFPAY ==
[2019-09-06 18:21] VITALS: BMI 27.8
[2019-09-24 11:20] LABS: EXAGEN MAILED SPECIMEN
[2019-09-24 12:22] LABS: Color, Urine Yellow (Yellow); Glucose, Dipstick Normal (Normal); Ketone-Dipstick Negative (Negative); Leukocyte Esterase-Dipstick Negative /ul (Negative); Nitrite-Dipstick Negative (Negative); Occult Blood-Urine Negative /ul (Negative); Protein-Dipstick Negative (Negative); Specific Gravity, Urine 1.015 (1.002-1.030); Urine Bilirubin Dipstick Negative (Negative); Urine Clarity Sl. Cloudy (Clear); Urine Urobilinogen Normal (Normal)
[2019-09-24 12:23] LABS: Absolute Lymphocyte Count 1.28 X10^3/uL (0.83-4.51); Absolute Neutrophil Count 8.6 X10^3/uL (2.0-7.7); Basophil# 0.05 X10^3/uL; Basophil% 0.5 % (0-1); Eosinophil# 0.03 X10^3/uL; Eosinophils% 0.3 % (0-5); Hematocrit 37.2 % (40-54); Hemoglobin 12.1 g/dL (13.0-16.5); Lymphocyte # 1.28 X10^3/ul (4.0); Lymphocyte % 11.9 % (19-41); Mean Corp Hgb Conc 32.5 g/dL (32-36); Mean Corpuscular Hgb 28.4 pg (27.0-32.0); Mean Corpuscular Volume 87.3 fL (80-94); Mean Platelet Vol. 10.1 fl (6.2-12.0); Monocyte% 6.5 % (0-10); NRBC Flagged by Analyzer 0 % (0-5); Neutrophil # 8.63 X10^3/uL (2.7-7.7); Neutrophil % 80.1 % (47-70); Platelet Count 319 K/mm3 (150-450); RBC Distribution Width CV 15.4 % (11.6-14.6); RBC Distribution Width SD 48.8 fl (35.1-43.9); Red Blood Count 4.26 M/mm3 (4.6-6.2); White Blood Count 10.8 K/mm3 (4.4-11.0)
[2019-09-24 12:46] LABS: AST(SGOT) 21 U/L (15-37); Alanine Aminotransfer ALT/SGPT 35 U/L (16-61); Albumin, Serum 3.9 g/dL (3.2-5.0); Alkaline Phosphatase 83 U/L (45-117); Anion Gap 7 (5-15); BUN 20 mg/dL (7-18); Calcium,Total 9.4 mg/dL (8.5-10.1); Chloride 100 mmol/L (98-107); Creatinine, Serum 1.05 mg/dL (0.70-1.30); EST Glomerular Filtration Rate 75 mL/min (>60); Est Glom Filt Rate - Afr Amer 90 mL/min (>60); Globulin 4.1 g/dL (2.2-4.2); Glucose 171 mg/dL (74-106); Potassium 3.5 mmol/L (3.5-5.1); Sodium Level 135 mmol/L (136-145)
[2019-09-24 12:49] LABS: Protein, Urine (Random) 8.9 mg/dL (<11.9); Protein:Creat Ratio 294 mg/g CRE (0-200)
[2019-09-24 13:43] LABS: Hepatitis B Surface Antibody Non-Reactive; Hepatitis B Surface Antigen Non-Reactive (Nonreactive); Hepatitis C Antibody Non-Reactive (Nonreactive)
[2019-09-25 16:01] LABS: Hepatitis B Core AB IgM Negative (Negative)
== END ==
PROVIDERS: PCP Family Medicine Geriatric Medicine; Referring Provider Internal Medicine Rheumatology; Visit Provider Internal Medicine Rheumatology
DX: M06.4 Inflammatory polyarthropathy (principal); Z79.899 Other long term (current) drug therapy; R76.8 Other specified abnormal immunological findings in serum; H15.103 Unspecified episcleritis, bilateral; H53.2 Diplopia; Q66.70 Congenital pes cavus, unspecified foot; I10 Essential (primary) hypertension; E78.5 Hyperlipidemia, unspecified; E11.3599 Type 2 diabetes mellitus with proliferative diabetic retinopathy without macular edema, unspecified eye; Z86.73 Personal history of transient ischemic attack (TIA), and cerebral infarction without residual deficits; Z85.46 Personal history of malignant neoplasm of prostate
CPT/HCPCS: 36415; 80053; 81002; 82570; 84156; 85025; 86705; 86706; 86803; 87340

== ENCOUNTER → 2019-10-23 09:21 | Outpatient (CLI) | payer MEDICARE, OTHER, SELFPAY ==
[2019-09-06 18:21] VITALS: BMI 27.8
[2019-10-23 09:38] LABS: Lyme Ab Screen Interpretation REF LAB
[2019-10-23 10:31] LABS: Vitamin B12 693 pg/mL (211-911)
[2019-10-23 10:39] LABS: PSA,Total - Annual Screen < 0.01 ng/mL (0.00-4.00)
[2019-10-23 10:47] LABS: Ferritin 56 ng/mL (26-388); Iron 46 ug/dL (65-175); Iron Binding Capacity,Total 301 ug/dL (250-450); PERCENT IRON SATURATION 15.3 % (15.0-55.0)
[2019-10-24 20:08] LABS: Free Kappa Light Chains 60.1 mg/L (3.3-19.4); Free Lambda Light Chains 26.4 mg/L (5.7-26.3)
[2019-10-24 20:33] LABS: Lyme Scn Total Ab w/Rflx <0.91 ISR (0.00-0.90)
== END ==
PROVIDERS: Nurse Practitioner Family; PCP Family Medicine Geriatric Medicine; Referring Provider Urology; Visit Provider Urology
DX: C61 Malignant neoplasm of prostate (principal); D64.9 Anemia, unspecified; G62.9 Polyneuropathy, unspecified; R21 Rash and other nonspecific skin eruption
CPT/HCPCS: 36415; 82607; 82728; 82746; 83540; 83550; 83883; 84153; 86618; G0103

== ENCOUNTER → 2019-10-29 12:24 | Outpatient (CLI) | payer MEDICARE, OTHER, SELFPAY ==
[2019-09-06 18:21] VITALS: BMI 27.8
[2019-11-01 14:09] LABS: Albumin 3.7 g/dL (2.9-4.4); Albumin, Ur 53.2 % (.); Alpha-1-Globulin, Ur 0.9 % (.); Alpha-1-Globulins 0.3 g/dL (0.0-0.4); Alpha-2-Globulins 0.7 g/dL (0.4-1.0); Alpha-2-Globulins, Ur 6.8 % (.); Beta Globulin, Ur 12.5 % (.); Gamma Globulin 1.5 g/dL (0.4-1.8); Gamma Globulin, Ur 26.6 % (.); Immunoglobulin A 279 mg/dL (61-437); Immunoglobulin G 1378 mg/dL (603-1613); Immunoglobulin M 72 mg/dL (20-172); M-Spike, Ur % Not Observed % (Not Observed); PROEL- TOTAL PROTEIN 7.2 g/dL (6.0-8.5); Total Protein, Ur 4.5 mg/dL (Not Estab.)
[2019-11-01 15:20] LABS: IFE Result, Ur Comment: (.)
== END ==
PROVIDERS: PCP Family Medicine Geriatric Medicine; Referring Provider Nurse Practitioner Family; Visit Provider Nurse Practitioner Family
DX: G62.9 Polyneuropathy, unspecified (principal)
CPT/HCPCS: 36415; 82784; 84165; 84166; 86334; 86335

== ENCOUNTER → 2019-11-05 11:28 | Outpatient (CLI) | payer MEDICARE, OTHER, SELFPAY ==
[2019-09-06 18:21] VITALS: BMI 27.8
[2019-11-05 12:16] LABS: Absolute Lymphocyte Count 1.58 X10^3/uL (0.83-4.51); Absolute Neutrophil Count 5.4 X10^3/uL (2.0-7.7); Basophil# 0.06 X10^3/uL; Basophil% 0.8 % (0-1); Eosinophil# 0.17 X10^3/uL; Eosinophils% 2.1 % (0-5); Hematocrit 36.7 % (40-54); Hemoglobin 12.1 g/dL (13.0-16.5); Lymphocyte # 1.58 X10^3/ul (4.0); Lymphocyte % 19.8 % (19-41); Mean Corpuscular Hgb 28.2 pg (27.0-32.0); Mean Corpuscular Volume 85.5 fL (80-94); Mean Platelet Vol. 9.9 fl (6.2-12.0); Monocyte# 0.73 X10^3/uL; Monocyte% 9.1 % (0-10); NRBC Flagged by Analyzer 0 % (0-5); Neutrophil # 5.44 X10^3/uL (2.7-7.7); Neutrophil % 67.9 % (47-70); Platelet Count 245 K/mm3 (150-450); RBC Distribution Width CV 16.9 % (11.6-14.6); RBC Distribution Width SD 52.5 fl (35.1-43.9); Red Blood Count 4.29 M/mm3 (4.6-6.2)
[2019-11-05 12:32] LABS: Vitamin D,25 Hydroxy 42.4 ng/mL
[2019-11-05 12:46] LABS: ALB/GLOB Ratio 0.9 RATIO (0.9-2.4); AST(SGOT) 20 U/L (15-37); Alanine Aminotransfer ALT/SGPT 31 U/L (16-61); Albumin, Serum 3.6 g/dL (3.2-5.0); Alkaline Phosphatase 83 U/L (45-117); Anion Gap 6 (5-15); BUN 18 mg/dL (7-18); BUN/Creat Ratio 17.5 RATIO (10-20); Calcium,Total 8.6 mg/dL (8.5-10.1); Chloride 98 mmol/L (98-107); Creatinine, Serum 1.03 mg/dL (0.70-1.30); EST Glomerular Filtration Rate 76 mL/min (>60); Est Glom Filt Rate - Afr Amer 92 mL/min (>60); Globulin 3.8 g/dL (2.2-4.2); Glucose 101 mg/dL (74-106); Potassium 3.7 mmol/L (3.5-5.1); Protein, Total 7.4 g/dL (6.4-8.2); Sodium Level 133 mmol/L (136-145)
== END ==
PROVIDERS: PCP Family Medicine Geriatric Medicine; Visit Provider Family Medicine Geriatric Medicine
DX: E11.9 Type 2 diabetes mellitus without complications (principal); E55.9 Vitamin D deficiency, unspecified; I10 Essential (primary) hypertension
CPT/HCPCS: 36415; 80053; 82306; 84443; 85025

== ENCOUNTER → 2019-11-08 14:28 | Outpatient (CLI) | payer MEDICARE, OTHER, SELFPAY ==
[2019-09-06 18:21] VITALS: BMI 27.8
[2019-11-08 13:06] VITALS: BMI 27.8
--- NOTE | 2019-11-08 14:33 | CT_ITS ---
STUDY: CTA HEAD AND NECK WITH CONTRAST REASON FOR EXAM: Male, 69 years old. RT CAROTID STENOSIS. Hx of CVA 05/2019. Pt has rt carotid stent. Prior prostatectomy d/t prostate cancer. HTN-rx controlled. Diabetic-Metformin RADIATION DOSAGE (If Supplied By Facility): CTDIvol = ( 32.27 ) mGy, DLP = ( 1521.79 ) mGycm TECHNIQUE: CT angiography was performed with a multi-detector CT scanner. Data acquisition was obtained from the skull base through the vertex following intravenous administration of Isovue 370 100 ml. MIP images were reconstructed from the axial data set. Post-processing of the angiographic images was performed, with multiplanar reformation and 3D reconstruction. Individualized dose optimization techniques were used for this CT. COMPARISON: No relevant priors. FINDINGS: Normal bilateral petrous carotid arteries. Normal right cavernous carotid artery with a normal supraclinoid bifurcation. Normal left cavernous carotid artery with a normal supraclinoid bifurcation. Normal right A1 segments of the anterior cerebral artery. Normal left A1 segments of the anterior cerebral artery. Normal intact anterior communicating artery (ACOM). Normal bilateral A2 segments of the anterior cerebral arteries. Normal right M1 and M2 segments of the middle cerebral arteries, with a normal M1 bifurcation. Normal left M1 and M2 segments of the middle cerebral arteries, with a normal M1 bifurcation. Normal right posterior communicating artery (PCOM). Normal left posterior communicating artery (PCOM). Normal bilateral vertebral arteries. Normal basilar artery with a normal basilar bifurcation. The visualized bilateral superior cerebellar (SCA) arteries are normal. Normal bilateral P1, P2 and visualized P3 segments of the posterior cerebral arteries. There is no demonstrated aneurysm of the [place]. There is no demonstrated abnormality of the visualized brain. AORTIC ARCH: Normal visualized aortic arch. Normal origins of the brachiocephalic, left common carotid, and left subclavian arteries. RIGHT CAROTID ARTERIES: There is a patent stent in the distal right common carotid artery extending through the bulb into the proximal right ICA. There is a minimal amount of plaque formation in the proximal ICA but no significant stenosis is noted. Normal visualized cervical portion of the right internal carotid artery. Normal origin of the right external carotid artery (ECA). LEFT CAROTID ARTERIES: Normal left common carotid artery (CCA). There is mild atherosclerotic plaque formation with minimal narrowing of the left carotid bulb. Normal origin of the left internal carotid (ICA) artery without a hemodynamically significant stenosis. Normal visualized cervical portion of the left internal carotid artery. Normal origin of the left external carotid artery (ECA). VERTEBRAL ARTERIES: Normal bilateral vertebral arteries. CT/CTA Head AND Neck W/ Contrast IMPRESSION: No CTA evidence of hemodynamically significant stenosis Patent right CCA/ICA stent Minimal plaque in the left common carotid artery bulb with no significant stenosis in the bulbar ICA Normal vertebral arteries Mild degenerative bony changes Electronically Signed: Donavon Magaña MD at 12:27 EDT , Service support ,
[2019-11-08 15:48] LABS: BUN 16 mg/dL (7-18); Creatinine, Serum 0.86 mg/dL (0.70-1.30); EST Glomerular Filtration Rate 93 mL/min (>60); Est Glom Filt Rate - Afr Amer 113 mL/min (>60)
== END ==
PROVIDERS: PCP Family Medicine Geriatric Medicine
DX: Z01.812 Encounter for preprocedural laboratory examination (principal); I65.21 Occlusion and stenosis of right carotid artery
CPT/HCPCS: 36415; 70496; 70498; 82565; 84520; Q9967

== ENCOUNTER → 2019-11-09 11:27 | Outpatient (CLI) | payer MEDICARE, OTHER, SELFPAY ==
[2019-11-08 13:06] VITALS: BMI 27.8
[2019-11-12 16:08] LABS: Alternaria tenuis <0.10 kU/L (Class 0); Ash, White <0.10 kU/L (Class 0); Aspergillus fumigatus <0.10 kU/L (Class 0); Bermuda Grass <0.10 kU/L (Class 0); Birch <0.10 kU/L (Class 0); Black Walnut <0.10 kU/L (Class 0); Cat Hair / Dander,Stand <0.10 kU/L (Class 0); Cedar, Mountain <0.10 kU/L (Class 0); Cladosporium herbarum <0.10 kU/L (Class 0); Cockroach, American <0.10 kU/L (Class 0); Cottonwood <0.10 kU/L (Class 0); D farinae Mite <0.10 kU/L (Class 0); D pteronyssinus <0.10 kU/L (Class 0); Dog Epithelia <0.10 kU/L (Class 0); Elm, American White <0.10 kU/L (Class 0); Immunoglobulin E 142 IU/mL (6-495); Maple/Box Elder <0.10 kU/L (Class 0); Mulberry, White <0.10 kU/L (Class 0); Oak, White <0.10 kU/L (Class 0); Pecan <0.10 kU/L (Class 0); Penicillium Notatum <0.10 kU/L (Class 0); Pigweed, Rough <0.10 kU/L (Class 0); Ragweed, Short/Common <0.10 kU/L (Class 0); Russian Thistle <0.10 kU/L (Class 0); Sheep Sorrel <0.10 kU/L (Class 0); Sycamore, American <0.10 kU/L (Class 0); Timothy Grass <0.10 kU/L (Class 0)
[2019-11-12 16:45] LABS: Mouse Urine <0.10 kU/L (Class 0)
== END ==
PROVIDERS: PCP Family Medicine Geriatric Medicine; Visit Provider Family Medicine Geriatric Medicine
DX: T78.40XA Allergy, unspecified, initial encounter (principal)
CPT/HCPCS: 36415; 82785; 86003

== ENCOUNTER → 2019-12-03 17:24 | Outpatient (CLI) | payer MEDICARE, OTHER, SELFPAY ==
[2019-11-08 13:06] VITALS: BMI 27.8
--- NOTE | 2019-12-03 17:30 | RAD_ITS ---
STUDY: X-RAY - RIGHT ANKLE REASON FOR EXAM: Male, 69 years old. right ankle pain, arthritis TECHNIQUE: 3 view(s) of the ankle. COMPARISON: None. FINDINGS: Normal visualized distal tibia and fibula. Normal medial and lateral malleoli. Normal tibiotalar articulation and ankle mortise. Normal visualized talus and calcaneus. The visualized subtalar, talonavicular, calcaneocuboid and tarsal articulations are normal. The soft tissue structures are unremarkable. RAD/Ankle min 3 Views IMPRESSION: Normal x-ray examination of the ankle. Electronically Signed: Dick Bates MD at 20:53 EDT , Service support ,
== END ==
PROVIDERS: PCP Family Medicine Geriatric Medicine; Visit Provider Family Medicine Geriatric Medicine
DX: M25.571 Pain in right ankle and joints of right foot (principal)
CPT/HCPCS: 73610

== ENCOUNTER → 2020-02-11 13:02 | Outpatient (CLI) | payer MEDICARE, OTHER, SELFPAY ==
[2019-11-08 13:06] VITALS: BMI 27.8
[2020-02-11 13:55] LABS: Absolute Lymphocyte Count 1.94 X10^3/uL (0.83-4.51); Absolute Neutrophil Count 8.1 X10^3/uL (2.0-7.7); Basophil# 0.07 X10^3/uL; Basophil% 0.6 % (0-1); Eosinophil# 0.17 X10^3/uL; Eosinophils% 1.5 % (0-5); Lymphocyte # 1.94 X10^3/ul (4.0); Lymphocyte % 17.4 % (19-41); Mean Corp Hgb Conc 32.5 g/dL (32-36); Mean Corpuscular Hgb 29.5 pg (27.0-32.0); Mean Corpuscular Volume 90.9 fL (80-94); Mean Platelet Vol. 9.7 fl (6.2-12.0); Monocyte# 0.82 X10^3/uL; Monocyte% 7.3 % (0-10); NRBC Flagged by Analyzer 0 % (0-5); Neutrophil # 8.13 X10^3/uL (2.7-7.7); Neutrophil % 72.8 % (47-70); Platelet Count 284 K/mm3 (150-450); RBC Distribution Width CV 15.5 % (11.6-14.6); RBC Distribution Width SD 51.3 fl (35.1-43.9); White Blood Count 11.2 K/mm3 (4.4-11.0)
[2020-02-11 14:22] LABS: Vitamin D,25 Hydroxy 24.6 ng/mL
[2020-02-11 14:30] LABS: ALB/GLOB Ratio 0.9 RATIO (0.9-2.4); AST(SGOT) 22 U/L (15-37); Alanine Aminotransfer ALT/SGPT 32 U/L (16-61); Albumin, Serum 3.6 g/dL (3.2-5.0); Alkaline Phosphatase 102 U/L (45-117); Anion Gap 7 (5-15); BUN 19 mg/dL (7-18); BUN/Creat Ratio 17.9 RATIO (10-20); Calcium,Total 8.5 mg/dL (8.5-10.1); Chloride 102 mmol/L (98-107); Creatinine, Serum 1.06 mg/dL (0.70-1.30); EST Glomerular Filtration Rate 74 mL/min (>60); Est Glom Filt Rate - Afr Amer 89 mL/min (>60); Glucose 112 mg/dL (74-106); Potassium 3.7 mmol/L (3.5-5.1); Protein, Total 7.6 g/dL (6.4-8.2); Sodium Level 137 mmol/L (136-145); Thyroid Stim Hormone (TSH) 1.26 uIU/mL (0.358-3.74)
== END ==
PROVIDERS: PCP Family Medicine Geriatric Medicine; Visit Provider Family Medicine Geriatric Medicine
DX: E55.9 Vitamin D deficiency, unspecified (principal); I10 Essential (primary) hypertension
CPT/HCPCS: 36415; 80053; 82306; 84443; 85025

== ENCOUNTER → 2020-05-12 13:58 | Outpatient (CLI) | payer MEDICARE, OTHER, SELFPAY ==
[2020-05-12 16:48] LABS: Absolute Lymphocyte Count 1.52 X10^3/uL (0.83-4.51); Absolute Neutrophil Count 7.8 X10^3/uL (2.0-7.7); Basophil# 0.04 X10^3/uL; Basophil% 0.4 % (0-1); Eosinophil# 0.04 X10^3/uL; Eosinophils% 0.4 % (0-5); Hematocrit 40.4 % (40-54); Lymphocyte # 1.52 X10^3/ul (4.0); Lymphocyte % 15.5 % (19-41); Mean Corp Hgb Conc 32.2 g/dL (32-36); Mean Corpuscular Hgb 29.2 pg (27.0-32.0); Mean Corpuscular Volume 90.8 fL (80-94); Mean Platelet Vol. 9.8 fl (6.2-12.0); Monocyte% 4.1 % (0-10); NRBC Flagged by Analyzer 0 % (0-5); Neutrophil # 7.77 X10^3/uL (2.7-7.7); Neutrophil % 79.1 % (47-70); Platelet Count 313 K/mm3 (150-450); RBC Distribution Width CV 13.6 % (11.6-14.6); RBC Distribution Width SD 45.5 fl (35.1-43.9); Red Blood Count 4.45 M/mm3 (4.6-6.2); White Blood Count 9.8 K/mm3 (4.4-11.0)
[2020-05-12 17:06] LABS: Vitamin D,25 Hydroxy 34.7 ng/mL
[2020-05-12 17:15] LABS: ALB/GLOB Ratio 0.9 RATIO (0.9-2.4); AST(SGOT) 21 U/L (15-37); Alanine Aminotransfer ALT/SGPT 32 U/L (16-61); Alkaline Phosphatase 94 U/L (45-117); Anion Gap 5 (5-15); BUN 22 mg/dL (7-18); BUN/Creat Ratio 17.9 RATIO (10-20); Calcium,Total 9.1 mg/dL (8.5-10.1); Chloride 100 mmol/L (98-107); Creatinine, Serum 1.23 mg/dL (0.70-1.30); EST Glomerular Filtration Rate 62 mL/min (>60); Est Glom Filt Rate - Afr Amer 75 mL/min (>60); Globulin 4.3 g/dL (2.2-4.2); Glucose 162 mg/dL (74-106); Potassium 3.6 mmol/L (3.5-5.1); Protein, Total 8.3 g/dL (6.4-8.2); Sodium Level 133 mmol/L (136-145)
== END ==
PROVIDERS: PCP Family Medicine Geriatric Medicine; Visit Provider Family Medicine Geriatric Medicine
DX: I10 Essential (primary) hypertension (principal); E11.9 Type 2 diabetes mellitus without complications; E55.9 Vitamin D deficiency, unspecified
CPT/HCPCS: 36415; 80053; 82306; 84443; 85025

== ENCOUNTER → 2020-06-19 10:40 | Outpatient (CLI) | payer MEDICARE, OTHER, SELFPAY ==
[2020-06-19 12:07] LABS: Ferritin 110 ng/mL (26-388); Iron 39 ug/dL (65-175)
[2020-06-23 16:08] LABS: Albumin 3.5 g/dL (2.9-4.4); Alpha-1-Globulins 0.4 g/dL (0.0-0.4); Free Kappa Light Chains 63.7 mg/L (3.3-19.4); Gamma Globulin 1.5 g/dL (0.4-1.8); Immunoglobulin A 280 mg/dL (61-437); Immunoglobulin G 1324 mg/dL (603-1613); Immunoglobulin M 68 mg/dL (20-172); PROEL- TOTAL PROTEIN 7.3 g/dL (6.0-8.5)
[2020-06-23 18:38] LABS: Immunofixation Urine Comment: (.)
== END ==
PROVIDERS: PCP Family Medicine Geriatric Medicine; Referring Provider Psychiatry & Neurology Neurology; Visit Provider Psychiatry & Neurology Neurology
DX: G62.9 Polyneuropathy, unspecified (principal); Z86.2 Personal history of diseases of the blood and blood-forming organs and certain disorders involving the immune mechanism
CPT/HCPCS: 36415; 82728; 82784; 83540; 83883; 84165; 86334; 86335

== ENCOUNTER → 2020-07-30 14:04 | Outpatient (CLI) | payer MEDICARE, OTHER, SELFPAY ==
[2020-07-30 16:38] LABS: Absolute Lymphocyte Count 2.05 X10^3/uL (0.83-4.51); Absolute Neutrophil Count 6.1 X10^3/uL (2.0-7.7); Basophil# 0.05 X10^3/uL; Basophil% 0.5 % (0-1); Eosinophil# 0.16 X10^3/uL; Eosinophils% 1.7 % (0-5); Hematocrit 38.4 % (40-54); Hemoglobin 12.5 g/dL (13.0-16.5); Lymphocyte # 2.05 X10^3/ul (0.83-4.51); Mean Corp Hgb Conc 32.6 g/dL (32-36); Mean Corpuscular Hgb 28.6 pg (27.0-32.0); Mean Corpuscular Volume 87.9 fL (80-94); Mean Platelet Vol. 9.6 fl (6.2-12.0); Monocyte# 0.91 X10^3/uL; Monocyte% 9.8 % (0-10); NRBC Flagged by Analyzer 0 % (0-5); Neutrophil # 6.13 X10^3/uL (2.7-7.7); Neutrophil % 65.8 % (47-70); Platelet Count 338 K/mm3 (150-450); RBC Distribution Width CV 14.6 % (11.6-14.6); RBC Distribution Width SD 47.1 fl (35.1-43.9); Red Blood Count 4.37 M/mm3 (4.6-6.2); White Blood Count 9.3 K/mm3 (4.4-11.0)
[2020-07-30 16:57] LABS: AST(SGOT) 22 U/L (15-37); Alanine Aminotransfer ALT/SGPT 31 U/L (16-61); Albumin, Serum 3.9 g/dL (3.2-5.0); Alkaline Phosphatase 96 U/L (45-117); Anion Gap 7 (5-15); BUN 20 mg/dL (7-18); BUN/Creat Ratio 16.1 RATIO (10-20); Calcium,Total 9.2 mg/dL (8.5-10.1); Chloride 100 mmol/L (98-107); Creatinine, Serum 1.24 mg/dL (0.70-1.30); EST Glomerular Filtration Rate 61 mL/min (>60); Est Glom Filt Rate - Afr Amer 74 mL/min (>60); Globulin 3.8 g/dL (2.2-4.2); Glucose 89 mg/dL (74-106); PSA,Total - Annual Screen < 0.01 ng/mL (0.00-4.00); Potassium 3.8 mmol/L (3.5-5.1); Protein, Total 7.7 g/dL (6.4-8.2); Sodium Level 134 mmol/L (136-145); Thyroid Stim Hormone (TSH) 1.19 uIU/mL (0.358-3.74)
[2020-07-31 08:11] LABS: Vitamin D,25 Hydroxy 38.7 ng/mL
== END ==
PROVIDERS: PCP Family Medicine Geriatric Medicine; Visit Provider Family Medicine Geriatric Medicine
DX: I10 Essential (primary) hypertension (principal); E11.65 Type 2 diabetes mellitus with hyperglycemia; E55.9 Vitamin D deficiency, unspecified; Z12.5 Encounter for screening for malignant neoplasm of prostate
CPT/HCPCS: 36415; 80053; 82306; 84153; 84443; 85025; G0103

== ENCOUNTER → 2020-08-14 08:01 | Outpatient (CLI) | payer MEDICARE, OTHER, SELFPAY ==
[2019-11-08 13:06] VITALS: BMI 27.8
--- NOTE | 2020-08-14 08:04 | ART_ITS ---
Reason For Study: atherosclerosis with claudication Procedure A bilateral lower extremity continuous wave Doppler with analog waveform analysis and ankle brachial indexes. Left Segmental Pressures Left brachial= 165mmHg. Left posterior tibial artery = 122mmHg. Left dorsalis pedis artery = 124mmHg. Left digit = 57 mmHg. The left dorsalis pedis waveforms are biphasic. The left posterior tibial artery waveforms are biphasic. Right Segmental Pressures Right brachial= 157mmHg. Right posterior tibial artery = 153mmHg. Right dorsalis pedis artery = 158mmHg. Right digit = 112 mmHg. The right dorsalis pedis waveforms are triphasic. The right posterior tibial artery waveforms are triphasic. Indices The right ankle brachial index by the posterior tibial artery is .93. The right ankle brachial index by the dorsalis pedis is .96. The right digital-brachial index is .68. The left ankle brachial index by the posterior tibial artery is .74. The left ankle brachial index by the dorsalis pedis is .75. The left digital-brachial index is .35. VL/Ankle Brachial Index Interpretation Summary Right leg with triphasic flow and an RADHA 0.96. Left leg with biphasic flow and an RADHA 0.75. Digit brachial index 0.68 and 0.36. Ordering Physician: Praveen Mcdonough Performed By: ARANZA SAN [place]
--- NOTE | 2020-08-14 08:04 | ADU_ITS ---
Reason For Study: atherosclerosis wwith claudication Right Velocities Left Velocities Ext. Iliac Artery, dist = 180.4 cm./sec. Ext Iliac Artery, dist = 190.7 cm./sec. Common Femoral Artery, mid = 162.2 cm./sec. Common Femoral Artery, mid = 164.8 cm./sec. Supf Femoral Artery, prox = 90.6 cm./sec. Supf. Femoral Artery, prox = 343.5 cm./sec. Supf Femoral Artery, mid = 139.9 cm./sec. Supf. Femoral Artery, mid = 126.4 cm./sec. Supf Femoral Artery, dist. = 270.3 cm./sec. Supf. Femoral Artery, dist = 247.7 cm./sec. Profunda Femoral Artery = 138.9 cm./sec. Profunda Femoral Artery = 198.5 cm./sec. Popliteal Artery, prox. = 62.2 cm./sec. Popliteal Artery, proximal, = 39.8 cm./sec. Popliteal Artery, mid = 60.0 cm./sec. Popliteal Artery, mid = 39.8 cm./sec. Popliteal Artery, dist = 51.2 cm./sec. Popliteal Artery, distal = 55.5 cm./sec. Ant. Tibial Artery, prox = 63.3 cm./sec. Ant.Tibial Artery, prox = 35.4 cm./sec. Ant. Tibial Artery, mid = 49.0 cm./sec. Ant Tibial Artery, mid = 26.7 cm./sec. Ant. Tibial Artery, dist = 52.3 cm./sec. Ant. Tibial Artery, distal = 24.1 cm./sec. Post. Tibial Artery, prox = 52.3 cm./sec. Post. Tibial Artery, prox = 37.2 cm./sec. Post. Tibial Artery, mid = 56.7 cm./sec. Post Tibial Artery, mid = 38.0 cm./sec. Post. Tibial Artery, dist = 61.1 cm./sec. Post Tibial Artery, dist. = 40.6 cm./sec. Peroneal Artery, prox = 39.1 cm./sec. Peroneal Artery, prox = 24.1 cm./sec. Peroneal Artery, mid = 34.7 cm./sec. Peroneal Artery, mid = 22.3 cm./sec. Peroneal Artery,dist = 30.3 cm./sec. Peroneal Artery,dist. = 21.4 cm./sec. Procedure The exam was diagnostic. Exam performed in department. /US Art Duplex Bilat Lower Ext Interpretation Summary Right leg with moderate to severe stenosis distal femoral artery. There is trip hasic flow noted throughout the entire leg. Left leg with triphasic flow into the femoral artery with a severe stenosis noted. Also moderate stenosis distally. Biphasic flow noted below this . Ordering Physician: Praveen Mcdonough Performed By: Ambrocio Proctor RVT
--- NOTE | 2020-08-14 08:04 | AAVD_ITS ---
Reason For Study: AAA Aorta Measurements Aorta Doppler Measurements Proximal aorta measures1.54 x 1.62cm. in cross- Peak systolic flow velocities within the proximal sectional axis. aorta measure 51.5 cm/sec. Proximal aorta measures1.58cm. in longitudinal Peak systolic flow velocities within the mid aorta axis. measure 42.4 cm/sec. Mid aorta measures2.71 x 2.78cm. in cross- Peak systolic flow velocities within the distal sectional axis. aorta measure 53.3 cm/sec. Mid aorta measures2.62cm. in longitudinal axis. Distal aorta measures3.18 x 3.03cm. in cross- sectional axis. Distal aorta measures2.99cm. in longitudinal axis. Left Iliac Artery Left iliac artery measures .93 x .81 cm. in the cross-sectional axis. Left iliac artery measures .83 cm. in the longitudinal axis. Peak systolic velocity in the left iliac artery measures 194.1 cm/sec. Right Iliac Artery Right iliac artery measures .63 x .67 cm. in the cross-sectional axis. Right iliac artery measures .69 cm. in the longitudinal axis. Peak systolic velocity in the right iliac artery measures 169.0 cm/sec. Procedure Aorta IVC Iliac vasculature or bypass grafts 18841. The exam was diagnostic. Exam performed in department. VL/Abd Aortic/IVC Duplex scan Interpretation Summary No evidence of aortic iliac aneurysm or stenosis. Ordering Physician: Praveen Mcdonough Performed By: Ambrocio Proctor RVT
--- NOTE | 2020-08-14 08:04 | CDU_ITS ---
Reason For Study: carotid stenosis Rt. Velocities/BP Lt. Velocities/BP Prox CCA 95.6/18.6 cm/sec. Prox CCA 102.5/22.3 cm/sec. Mid CCA 85.2/18.6 cm/sec. Mid CCA 80.5/25.6 cm/sec. Dist CCA 98.2/23.9 cm/sec. Dist CCA 61.8/17.9 cm/sec. Prox ICA 86.3/23.7 cm/sec. Prox ICA 74.1/26.2 cm/sec. Mid ICA 86.3/26.2 cm/sec. Mid ICA 82.7/28.6 cm/sec. Dist ICA 76.4/23.2 cm/sec. Dist ICA 106.0/39.7 cm/sec. Rt. ICA/CCA = 1.0. Lt. ICA/CCA = 1.3. Prox ECA 178.4/20.4 cm/sec. Prox ECA 135.7/20.6 cm/sec. Rt. Vert. 52.0/12.4 cm/sec. Lt. Vert. 47.6/19.0 cm/sec. Right Extracranial There is homogeneous, smooth atherosclerotic plaque noted in the right common carotid artery. There is homogeneous, smooth atherosclerotic plaque noted in the right internal carotid artery. Stent noted from distal CCA through mid ICA. There is heterogeneous, irregular atherosclerotic plaque noted in the right external carotid artery. Antegrade flow is noted in the right vertebral artery. Left Extracranial There is homogeneous, smooth atherosclerotic plaque noted in the left common carotid artery. There is heterogeneous, irregular atherosclerotic plaque noted in the left internal carotid artery. There is heterogeneous, irregular atherosclerotic plaque noted in the left external carotid artery. Antegrade flow is noted in the left vertebral artery. Procedure Carotid Duplex 24735. This is a Carotid Duplex examination using B-mode, color flow and specral Doppler. The exam was diagnostic. Exam performed in department. VL/Carotid Duplex Ultrasound Interpretation Summary Mild (<50%) stenosis right extracranial internal carotid. Mild (<50%) stenosis left extracranial internal carotid. Flow within the vertebral arteries is antegrade bilaterally. Ordering Physician: Praveen Mcdonough Performed By: Ambrocio Proctor RVT
== END ==
PROVIDERS: PCP Family Medicine Geriatric Medicine; Referring Provider Surgery Vascular Surgery; Visit Provider Surgery Vascular Surgery
DX: I65.23 Occlusion and stenosis of bilateral carotid arteries (principal); I70.213 Atherosclerosis of native arteries of extremities with intermittent claudication, bilateral legs; I71.4 Abdominal aortic aneurysm, without rupture; Z86.73 Personal history of transient ischemic attack (TIA), and cerebral infarction without residual deficits
CPT/HCPCS: 93880; 93922; 93925; 93978

== ENCOUNTER → 2020-10-29 10:08 | Outpatient (CLI) | payer MEDICARE, OTHER, SELFPAY ==
[2020-08-14 13:08] VITALS: BMI 27.8
[2020-10-29 15:27] LABS: Absolute Lymphocyte Count 2.31 X10^3/uL (0.83-4.51); Absolute Neutrophil Count 7.6 X10^3/uL (2.0-7.7); Basophil# 0.07 X10^3/uL; Basophil% 0.6 % (0-1); Eosinophil# 0.27 X10^3/uL; Eosinophils% 2.4 % (0-5); Hematocrit 38.3 % (40-54); Hemoglobin 12.8 g/dL (13.0-16.5); Lymphocyte # 2.31 X10^3/ul (0.83-4.51); Lymphocyte % 20.4 % (19-41); Mean Corp Hgb Conc 33.4 g/dL (32-36); Mean Corpuscular Hgb 29.4 pg (27.0-32.0); Mean Platelet Vol. 9.6 fl (6.2-12.0); Monocyte# 0.97 X10^3/uL; Monocyte% 8.6 % (0-10); NRBC Flagged by Analyzer 0 % (0-5); Neutrophil # 7.64 X10^3/uL (2.7-7.7); Neutrophil % 67.6 % (47-70); Platelet Count 301 K/mm3 (150-450); RBC Distribution Width CV 14.2 % (11.6-14.6); RBC Distribution Width SD 46.1 fl (35.1-43.9); Red Blood Count 4.35 M/mm3 (4.6-6.2); White Blood Count 11.3 K/mm3 (4.4-11.0)
[2020-10-29 15:56] LABS: Vitamin D,25 Hydroxy 34.7 ng/mL
[2020-10-29 16:04] LABS: ALB/GLOB Ratio 0.9 RATIO (0.9-2.4); AST(SGOT) 19 U/L (15-37); Alanine Aminotransfer ALT/SGPT 29 U/L (16-61); Albumin, Serum 3.6 g/dL (3.2-5.0); Alkaline Phosphatase 96 U/L (45-117); Anion Gap 6 (5-15); BUN 19 mg/dL (7-18); BUN/Creat Ratio 18.4 RATIO (10-20); Calcium,Total 8.7 mg/dL (8.5-10.1); Chloride 103 mmol/L (98-107); Creatinine, Serum 1.03 mg/dL (0.70-1.30); EST Glomerular Filtration Rate 76 mL/min (>60); Est Glom Filt Rate - Afr Amer 92 mL/min (>60); Globulin 4.1 g/dL (2.2-4.2); Glucose 97 mg/dL (74-106); Potassium 3.8 mmol/L (3.5-5.1); Protein, Total 7.7 g/dL (6.4-8.2); Sodium Level 136 mmol/L (136-145); Thyroid Stim Hormone (TSH) 0.85 uIU/mL (0.358-3.74)
== END ==
PROVIDERS: PCP Family Medicine Geriatric Medicine; Referring Provider Family Medicine Geriatric Medicine; Visit Provider Family Medicine Geriatric Medicine
DX: I10 Essential (primary) hypertension (principal); E11.65 Type 2 diabetes mellitus with hyperglycemia; E55.9 Vitamin D deficiency, unspecified
CPT/HCPCS: 36415; 80053; 82306; 84443; 85025

== ENCOUNTER → 2021-01-28 15:23 | Outpatient (CLI) | payer MEDICARE, OTHER, SELFPAY ==
[2021-01-28 17:20] LABS: Absolute Lymphocyte Count 2.18 X10^3/uL (0.83-4.51); Absolute Neutrophil Count 6.6 X10^3/uL (2.0-7.7); Basophil# 0.04 X10^3/uL; Basophil% 0.4 % (0-1); Eosinophil# 0.21 X10^3/uL; Eosinophils% 2.1 % (0-5); Hematocrit 39.2 % (40-54); Lymphocyte # 2.18 X10^3/ul (0.83-4.51); Lymphocyte % 22.1 % (19-41); Mean Corp Hgb Conc 33.2 g/dL (32-36); Mean Corpuscular Hgb 29.4 pg (27.0-32.0); Mean Corpuscular Volume 88.7 fL (80-94); Mean Platelet Vol. 9.7 fl (6.2-12.0); Monocyte# 0.79 X10^3/uL; NRBC Flagged by Analyzer 0 % (0-5); Neutrophil # 6.62 X10^3/uL (2.7-7.7); Neutrophil % 67.1 % (47-70); Platelet Count 300 K/mm3 (150-450); RBC Distribution Width CV 15.2 % (11.6-14.6); RBC Distribution Width SD 49.8 fl (35.1-43.9); Red Blood Count 4.42 M/mm3 (4.6-6.2); White Blood Count 9.9 K/mm3 (4.4-11.0)
[2021-01-28 17:34] LABS: Vitamin D,25 Hydroxy 31.3 ng/mL
[2021-01-28 17:42] LABS: ALB/GLOB Ratio 0.8 RATIO (0.9-2.4); AST(SGOT) 22 U/L (15-37); Alanine Aminotransfer ALT/SGPT 33 U/L (16-61); Albumin, Serum 3.3 g/dL (3.2-5.0); Alkaline Phosphatase 95 U/L (45-117); Anion Gap 9 (5-15); BUN 22 mg/dL (7-18); BUN/Creat Ratio 19.6 RATIO (10-20); Calcium,Total 8.6 mg/dL (8.5-10.1); Chloride 101 mmol/L (98-107); Creatinine, Serum 1.12 mg/dL (0.70-1.30); EST Glomerular Filtration Rate 69 mL/min (>60); Est Glom Filt Rate - Afr Amer 84 mL/min (>60); Globulin 4.2 g/dL (2.2-4.2); Glucose 148 mg/dL (74-106); Potassium 3.7 mmol/L (3.5-5.1); Protein, Total 7.5 g/dL (6.4-8.2); Sodium Level 136 mmol/L (136-145); Thyroid Stim Hormone (TSH) 1.05 uIU/mL (0.358-3.74)
== END ==
PROVIDERS: PCP Family Medicine Geriatric Medicine; Visit Provider Family Medicine Geriatric Medicine
DX: I10 Essential (primary) hypertension (principal); E11.9 Type 2 diabetes mellitus without complications; E55.9 Vitamin D deficiency, unspecified
CPT/HCPCS: 36415; 80053; 82306; 84443; 85025

== ENCOUNTER → 2021-02-17 11:28 | Outpatient (CLI) | payer MEDICARE, OTHER, SELFPAY ==
[2021-02-17 12:26] LABS: Hematocrit 38.8 % (40-54); Hemoglobin 13.1 g/dL (13.0-16.5); Mean Corp Hgb Conc 33.8 g/dL (32-36); Mean Corpuscular Hgb 29.7 pg (27.0-32.0); Mean Platelet Vol. 9.8 fl (6.2-12.0); Platelet Count 301 K/mm3 (150-450); RBC Distribution Width CV 15.3 % (11.6-14.6); Red Blood Count 4.41 M/mm3 (4.6-6.2)
[2021-02-17 13:06] LABS: Ferritin 89 ng/mL (26-388); Iron 39 ug/dL (65-175)
[2021-02-18 17:07] LABS: Albumin 3.7 g/dL (2.9-4.4); Alpha-1-Globulins 0.3 g/dL (0.0-0.4); Alpha-2-Globulins 0.8 g/dL (0.4-1.0); Free Kappa Light Chains 77.7 mg/L (3.3-19.4); Free Lambda Light Chains 36.2 mg/L (5.7-26.3); Gamma Globulin 1.7 g/dL (0.4-1.8); Immunoglobulin A 298 mg/dL (61-437); Immunoglobulin G 1723 mg/dL (603-1613); Immunoglobulin M 72 mg/dL (20-172); PROEL- TOTAL PROTEIN 7.3 g/dL (6.0-8.5)
[2021-02-21 08:04] LABS: Immunofixation Urine Comment: (.)
== END ==
PROVIDERS: Nurse Practitioner Family; PCP Family Medicine Geriatric Medicine; Referring Provider Psychiatry & Neurology Neurology; Visit Provider Psychiatry & Neurology Neurology
DX: D50.9 Iron deficiency anemia, unspecified (principal); G62.9 Polyneuropathy, unspecified
CPT/HCPCS: 36415; 82728; 82784; 83540; 83883; 84165; 85027; 86334; 86335

== ENCOUNTER 2021-04-29 13:41 | Outpatient (CLI) | payer MEDICARE, OTHER, SELFPAY ==
[2021-04-29 16:11] LABS: Absolute Neutrophil Count 7.3 X10^3/uL (2.0-7.7); Basophil# 0.06 X10^3/uL; Basophil% 0.6 % (0-1); Eosinophil# 0.18 X10^3/uL; Eosinophils% 1.7 % (0-5); Hematocrit 41.1 % (40-54); Hemoglobin 13.6 g/dL (13.0-16.5); Lymphocyte % 19.6 % (19-41); Mean Corp Hgb Conc 33.1 g/dL (32-36); Mean Corpuscular Hgb 29.4 pg (27.0-32.0); Mean Platelet Vol. 9.6 fl (6.2-12.0); Monocyte# 1.06 X10^3/uL; Monocyte% 9.9 % (0-10); NRBC Flagged by Analyzer 0 % (0-5); Neutrophil % 67.8 % (47-70); Platelet Count 319 K/mm3 (150-450); RBC Distribution Width CV 14.3 % (11.6-14.6); RBC Distribution Width SD 46.2 fl (35.1-43.9); Red Blood Count 4.62 M/mm3 (4.6-6.2); White Blood Count 10.7 K/mm3 (4.4-11.0)
[2021-04-29 16:36] LABS: Vitamin D,25 Hydroxy 35.8 ng/mL
[2021-04-30 07:38] LABS: ALB/GLOB Ratio 0.9 RATIO (0.9-2.4); AST(SGOT) 24 U/L (15-37); Alanine Aminotransfer ALT/SGPT 32 U/L (16-61); Albumin, Serum 3.8 g/dL (3.2-5.0); Alkaline Phosphatase 90 U/L (45-117); Anion Gap 8 (5-15); BUN 19 mg/dL (7-18); BUN/Creat Ratio 16.5 RATIO (10-20); Calcium,Total 9.1 mg/dL (8.5-10.1); Chloride 100 mmol/L (98-107); Creatinine, Serum 1.15 mg/dL (0.70-1.30); EST Glomerular Filtration Rate 67 mL/min (>60); Est Glom Filt Rate - Afr Amer 81 mL/min (>60); Globulin 4.2 g/dL (2.2-4.2); Glucose 95 mg/dL (74-106); Potassium 3.7 mmol/L (3.5-5.1); Sodium Level 135 mmol/L (136-145); Thyroid Stim Hormone (TSH) 0.83 uIU/mL (0.358-3.74)
== END 2021-04-29 23:59 | disposition short-term general hospital (02) ==
LOC: POLAB3 13:42
PROVIDERS: PCP Family Medicine Geriatric Medicine; Visit Provider Family Medicine Geriatric Medicine
DX: E11.9 Type 2 diabetes mellitus without complications (principal); E55.9 Vitamin D deficiency, unspecified; I10 Essential (primary) hypertension
CPT/HCPCS: 36415; 80053; 82306; 84443; 85025

== ENCOUNTER → 2021-08-05 | Outpatient (CLI) | payer MEDICARE, OTHER, SELFPAY ==
[2021-08-05 12:47] LABS: Absolute Neutrophil Count 6.1 X10^3/uL (2.0-7.7); Basophil# 0.07 X10^3/uL; Basophil% 0.7 % (0-1); Eosinophil# 0.31 X10^3/uL; Eosinophils% 3.2 % (0-5); Hematocrit 37.3 % (40-54); Hemoglobin 12.6 g/dL (13.0-16.5); Lymphocyte % 23.8 % (19-41); Mean Corp Hgb Conc 33.8 g/dL (32-36); Mean Corpuscular Hgb 30.2 pg (27.0-32.0); Mean Corpuscular Volume 89.4 fL (80-94); Mean Platelet Vol. 9.6 fl (6.2-12.0); Monocyte# 0.86 X10^3/uL; Monocyte% 8.9 % (0-10); NRBC Flagged by Analyzer 0 % (0-5); Neutrophil % 63.1 % (47-70); Platelet Count 296 K/mm3 (150-450); RBC Distribution Width CV 15.3 % (11.6-14.6); RBC Distribution Width SD 49.9 fl (35.1-43.9); Red Blood Count 4.17 M/mm3 (4.6-6.2); White Blood Count 9.7 K/mm3 (4.4-11.0)
[2021-08-05 13:24] LABS: ALB/GLOB Ratio 0.9 RATIO (0.9-2.4); AST(SGOT) 21 U/L (15-37); Alanine Aminotransfer ALT/SGPT 36 U/L (16-61); Albumin, Serum 3.7 g/dL (3.2-5.0); Alkaline Phosphatase 86 U/L (45-117); Anion Gap 6 (5-15); BUN 21 mg/dL (7-18); BUN/Creat Ratio 17.4 RATIO (10-20); Calcium,Total 9.2 mg/dL (8.5-10.1); Chloride 104 mmol/L (98-107); Creatinine, Serum 1.21 mg/dL (0.70-1.30); EST Glomerular Filtration Rate 63 mL/min (>60); Est Glom Filt Rate - Afr Amer 76 mL/min (>60); Glucose 121 mg/dL (74-106); PSA,Total - Annual Screen < 0.01 ng/mL (0.00-4.00); Potassium 3.9 mmol/L (3.5-5.1); Protein, Total 7.7 g/dL (6.4-8.2); Sodium Level 137 mmol/L (136-145); Thyroid Stim Hormone (TSH) 1.03 uIU/mL (0.358-3.74)
== END | disposition home or self-care (01) ==
LOC: POLAB3 09:53
PROVIDERS: PCP Family Medicine Geriatric Medicine; Visit Provider Family Medicine Geriatric Medicine
DX: E11.9 Type 2 diabetes mellitus without complications (principal); E55.9 Vitamin D deficiency, unspecified; I10 Essential (primary) hypertension; Z12.5 Encounter for screening for malignant neoplasm of prostate
CPT/HCPCS: 36415; 80053; 82306; 84153; 84443; 85025; G0103

== ENCOUNTER → 2021-08-11 | Outpatient (CLI) | payer MEDICARE, OTHER, SELFPAY | END | disposition home or self-care (01) | LOC: MTLAB 09:31 | PROVIDERS: PCP Family Medicine Geriatric Medicine; Referring Provider Nurse Practitioner Family; Visit Provider Nurse Practitioner Family | DX: R69 Illness, unspecified (principal) ==

== ENCOUNTER → 2021-11-12 | Outpatient (CLI) | payer MEDICARE, OTHER, SELFPAY ==
[2021-11-12 12:04] LABS: Absolute Lymphocyte Count 1.92 X10^3/uL (0.83-4.51); Absolute Neutrophil Count 5.8 X10^3/uL (2.0-7.7); Basophil# 0.07 X10^3/uL; Basophil% 0.8 % (0-1); Eosinophil# 0.25 X10^3/uL; Eosinophils% 2.8 % (0-5); Hemoglobin 12.7 g/dL (13.0-16.5); Lymphocyte # 1.92 X10^3/ul (0.83-4.51); Lymphocyte % 21.8 % (19-41); Mean Corp Hgb Conc 33.4 g/dL (32-36); Mean Corpuscular Hgb 30.7 pg (27.0-32.0); Mean Corpuscular Volume 91.8 fL (80-94); Mean Platelet Vol. 9.5 fl (6.2-12.0); Monocyte# 0.76 X10^3/uL; Monocyte% 8.6 % (0-10); NRBC Flagged by Analyzer 0 % (0-5); Neutrophil # 5.79 X10^3/uL (2.7-7.7); Neutrophil % 65.9 % (47-70); Platelet Count 279 K/mm3 (150-450); RBC Distribution Width CV 14.1 % (11.6-14.6); RBC Distribution Width SD 47.7 fl (35.1-43.9); Red Blood Count 4.14 M/mm3 (4.6-6.2); White Blood Count 8.8 K/mm3 (4.4-11.0)
[2021-11-12 12:37] LABS: Vitamin D,25 Hydroxy 43.5 ng/mL
[2021-11-12 12:59] LABS: ALB/GLOB Ratio 0.9 RATIO (0.9-2.4); AST(SGOT) 22 U/L (15-37); Alanine Aminotransfer ALT/SGPT 30 U/L (16-61); Albumin, Serum 3.6 g/dL (3.2-5.0); Alkaline Phosphatase 92 U/L (45-117); Anion Gap 4 (5-15); BUN 20 mg/dL (7-18); BUN/Creat Ratio 18.5 RATIO (10-20); Calcium,Total 8.8 mg/dL (8.5-10.1); Chloride 103 mmol/L (98-107); Creatinine, Serum 1.08 mg/dL (0.70-1.30); EST Glomerular Filtration Rate 72 mL/min (>60); Est Glom Filt Rate - Afr Amer 87 mL/min (>60); Globulin 4.1 g/dL (2.2-4.2); Glucose 106 mg/dL (74-106); Potassium 3.9 mmol/L (3.5-5.1); Protein, Total 7.7 g/dL (6.4-8.2); Sodium Level 135 mmol/L (136-145); Thyroid Stim Hormone (TSH) 1.18 uIU/mL (0.358-3.74)
== END | disposition home or self-care (01) ==
LOC: LAB 11:20
PROVIDERS: PCP Family Medicine Geriatric Medicine; Visit Provider Family Medicine Geriatric Medicine
DX: I10 Essential (primary) hypertension (principal); E11.9 Type 2 diabetes mellitus without complications; E55.9 Vitamin D deficiency, unspecified
CPT/HCPCS: 36415; 80053; 82306; 84443; 85025

== ENCOUNTER → 2022-02-05 | Outpatient (CLI) | payer MEDICARE, OTHER, SELFPAY ==
--- NOTE | 2022-02-05 08:48 | ADU_ITS ---
Reason For Study: Stricture of artery Right Velocities Left Velocities Ext. Iliac Artery, dist = 187.3 cm./sec. Ext Iliac Artery, dist = 180.4 cm./sec. Common Femoral Artery, mid = 127.6 cm./sec. Common Femoral Artery, mid = 183 cm./sec. Supf Femoral Artery, prox = 101.7 cm./sec. Supf. Femoral Artery, prox = 385.2 cm./sec. Supf Femoral Artery, mid = 122.5 cm./sec. Supf. Femoral Artery, mid = 83.3 cm./sec. Supf Femoral Artery, dist. = 180.4 cm./sec. SFA, mid/dist, 292.7 cm/sec. Profunda Femoral Artery = 161.3 cm./sec. Supf. Femoral Artery, dist = 59.5 cm./sec. Popliteal Artery, mid = 56.3 cm./sec. Profunda Femoral Artery = 100 cm./sec. Post. Tibial Artery, prox = 42.1 cm./sec. Popliteal Artery, mid = 51.1 cm./sec. Post. Tibial Artery, mid = 67.6 cm./sec. Post. Tibial Artery, prox = 47.4 cm./sec. Post. Tibial Artery, dist = 62.9 cm./sec. Post Tibial Artery, mid = 44.9 cm./sec. Peroneal Artery, prox = 43.1 cm./sec. Post Tibial Artery, dist. = 42.5 cm./sec. Peroneal Artery, mid = 38.4 cm./sec. Peroneal Artery, prox = 18.9 cm./sec. Peroneal Artery,dist = 23.2 cm./sec. Peroneal Artery, mid = 19.6 cm./sec. Ant. Tibial Artery, prox = 49.4 cm./sec. Peroneal Artery,dist. = 13.4 cm./sec. Ant. Tibial Artery, mid = 57.2 cm./sec. Ant.Tibial Artery, prox = 20 cm./sec. Ant. Tibial Artery, dist = 59.8 cm./sec. Ant Tibial Artery, mid = 24 cm./sec. Ant. Tibial Artery, distal = 13.9 cm./sec. Procedure Exam performed in department. /US Art Duplex Bilat Lower Ext Interpretation Summary Right leg no stenosis noted. Left withsevere femoral stenosis. Ordering Physician: Praveen Mcdonough Referring Physician: Carlyle Ren Chi Performed By: Dorita Silva RVT
--- NOTE | 2022-02-05 08:48 | ART_ITS ---
Reason For Study: Stricture of artery Procedure A bilateral lower extremity continuous wave Doppler with analog waveform analysis and ankle brachial indexes. Left Segmental Pressures Left brachial= 169mmHg. Left posterior tibial artery = 111mmHg. Left dorsalis pedis artery = 112mmHg. Left digit = 56 mmHg. The left dorsalis pedis waveforms are biphasic. The left posterior tibial artery waveforms are biphasic. Right Segmental Pressures Right brachial= 164mmHg. Right posterior tibial artery = 143mmHg. Right dorsalis pedis artery = 127mmHg. Right digit = 91 mmHg. The right dorsalis pedis waveforms are triphasic. The right posterior tibial artery waveforms are triphasic. Indices The right ankle brachial index by the dorsalis pedis is 0.75. The right ankle brachial index by the posterior tibial artery is 0.85. The right digital-brachial index is 0.54. The left ankle brachial index by the dorsalis pedis is 0.66. The left ankle brachial index by the posterior tibial artery is 0.66. The left digital-brachial index is 0.33. VL/Ankle Brachial Index Interpretation Summary Right leg with mild occlussive disease at rest with RADHA 0.85 but triphasic flow noted. LEft moderate occlussive disease with biphasic flow and RADHA 0.66. Ordering Physician: Praveen Mcdonough Referring Physician: Carlyle Ren Chi Performed By: Dorita Silva RVT
== END | disposition home or self-care (01) ==
LOC: CVS 08:46
PROVIDERS: PCP Family Medicine Geriatric Medicine; Referring Provider Surgery Vascular Surgery; Visit Provider Surgery Vascular Surgery
DX: I77.1 Stricture of artery (principal); I70.0 Atherosclerosis of aorta; I70.213 Atherosclerosis of native arteries of extremities with intermittent claudication, bilateral legs
CPT/HCPCS: 93922; 93925

== ENCOUNTER → 2022-02-08 | Outpatient (CLI) | payer MEDICARE, OTHER, SELFPAY ==
[2022-02-08 11:09] LABS: Ferritin 96 ng/mL (26-388); Iron 54 ug/dL (65-175)
[2022-02-11 15:08] LABS: Alpha-1-Globulins 0.2 g/dL (0.0-0.4); Alpha-2-Globulins 0.8 g/dL (0.4-1.0); Free Kappa Light Chains 106.4 mg/L (3.3-19.4); Free Lambda Light Chains 43.8 mg/L (5.7-26.3); Gamma Globulin 1.5 g/dL (0.4-1.8); Immunoglobulin A 270 mg/dL (61-437); Immunoglobulin G 1581 mg/dL (603-1613); Immunoglobulin M 68 mg/dL (20-172); PROEL- TOTAL PROTEIN 7.3 g/dL (6.0-8.5)
== END | disposition home or self-care (01) ==
LOC: LAB 09:55
PROVIDERS: PCP Family Medicine Geriatric Medicine; Referring Provider Psychiatry & Neurology Neurology; Visit Provider Psychiatry & Neurology Neurology
DX: G62.9 Polyneuropathy, unspecified (principal); Z86.2 Personal history of diseases of the blood and blood-forming organs and certain disorders involving the immune mechanism
CPT/HCPCS: 36415; 82728; 82784; 83540; 83883; 84165; 86334; 86335

== ENCOUNTER → 2022-02-11 | Outpatient (CLI) | payer MEDICARE, OTHER, SELFPAY ==
[2022-02-11 12:30] LABS: Absolute Lymphocyte Count 2.21 X10^3/uL (0.83-4.51); Absolute Neutrophil Count 5.8 X10^3/uL (2.0-7.7); Basophil# 0.06 X10^3/uL; Basophil% 0.7 % (0-1); Eosinophils% 2.2 % (0-5); Hematocrit 37.6 % (40-54); Hemoglobin 13.1 g/dL (13.0-16.5); Lymphocyte # 2.21 X10^3/ul (0.83-4.51); Lymphocyte % 24.2 % (19-41); Mean Corp Hgb Conc 34.8 g/dL (32-36); Mean Corpuscular Hgb 31.3 pg (27.0-32.0); Mean Platelet Vol. 9.5 fl (6.2-12.0); Monocyte% 8.8 % (0-10); NRBC Flagged by Analyzer 0 % (0-5); Neutrophil # 5.84 X10^3/uL (2.7-7.7); Neutrophil % 63.9 % (47-70); Platelet Count 304 K/mm3 (150-450); RBC Distribution Width CV 14.2 % (11.6-14.6); RBC Distribution Width SD 46.6 fl (35.1-43.9); Red Blood Count 4.18 M/mm3 (4.6-6.2); White Blood Count 9.1 K/mm3 (4.4-11.0)
[2022-02-11 12:51] LABS: Vitamin D,25 Hydroxy 34.7 ng/mL
[2022-02-11 12:56] LABS: ALB/GLOB Ratio 0.9 RATIO (0.9-2.4); AST(SGOT) 14 U/L (15-37); Alanine Aminotransfer ALT/SGPT 27 U/L (16-61); Albumin, Serum 3.6 g/dL (3.2-5.0); Alkaline Phosphatase 84 U/L (45-117); Anion Gap 7 (5-15); BUN 26 mg/dL (7-18); BUN/Creat Ratio 18.7 RATIO (10-20); Calcium,Total 8.8 mg/dL (8.5-10.1); Chloride 103 mmol/L (98-107); Creatinine, Serum 1.39 mg/dL (0.70-1.30); EST Glomerular Filtration Rate 54 mL/min (>60); Est Glom Filt Rate - Afr Amer 65 mL/min (>60); Globulin 3.9 g/dL (2.2-4.2); Glucose 88 mg/dL (74-106); Potassium 3.9 mmol/L (3.5-5.1); Protein, Total 7.5 g/dL (6.4-8.2); Sodium Level 137 mmol/L (136-145)
== END | disposition home or self-care (01) ==
LOC: POLAB3 10:44
PROVIDERS: PCP Family Medicine Geriatric Medicine; Visit Provider Family Medicine Geriatric Medicine
DX: E11.65 Type 2 diabetes mellitus with hyperglycemia (principal); I10 Essential (primary) hypertension; E55.9 Vitamin D deficiency, unspecified
CPT/HCPCS: 36415; 80053; 82306; 84443; 85025

== ENCOUNTER → 2022-05-12 | Outpatient (CLI) | payer MEDICARE, OTHER, SELFPAY ==
[2022-05-12 12:24] LABS: Absolute Lymphocyte Count 2.22 X10^3/uL (0.83-4.51); Absolute Neutrophil Count 6.8 X10^3/uL (2.0-7.7); Basophil# 0.08 X10^3/uL; Basophil% 0.8 % (0-1); Eosinophil# 0.23 X10^3/uL; Eosinophils% 2.2 % (0-5); Hematocrit 37.9 % (40-54); Lymphocyte # 2.22 X10^3/ul (0.83-4.51); Lymphocyte % 21.4 % (19-41); Mean Corp Hgb Conc 34.3 g/dL (32-36); Mean Corpuscular Hgb 30.4 pg (27.0-32.0); Mean Corpuscular Volume 88.8 fL (80-94); Mean Platelet Vol. 9.6 fl (6.2-12.0); Monocyte# 0.93 X10^3/uL; NRBC Flagged by Analyzer 0 % (0-5); Neutrophil # 6.81 X10^3/uL (2.7-7.7); Neutrophil % 65.4 % (47-70); Platelet Count 302 K/mm3 (150-450); RBC Distribution Width CV 14.6 % (11.6-14.6); RBC Distribution Width SD 46.9 fl (35.1-43.9); Red Blood Count 4.27 M/mm3 (4.6-6.2); White Blood Count 10.4 K/mm3 (4.4-11.0)
[2022-05-12 12:48] LABS: Vitamin D,25 Hydroxy 27.8 ng/mL
[2022-05-12 13:08] LABS: ALB/GLOB Ratio 0.8 RATIO (0.9-2.4); AST(SGOT) 29 U/L (15-37); Alanine Aminotransfer ALT/SGPT 37 U/L (16-61); Albumin, Serum 3.6 g/dL (3.2-5.0); Alkaline Phosphatase 81 U/L (45-117); Anion Gap 7 (5-15); BUN 25 mg/dL (7-18); BUN/Creat Ratio 18.8 RATIO (10-20); Calcium,Total 8.9 mg/dL (8.5-10.1); Chloride 104 mmol/L (98-107); Creatinine, Serum 1.33 mg/dL (0.70-1.30); EST Glomerular Filtration Rate 56 mL/min (>60); Est Glom Filt Rate - Afr Amer 68 mL/min (>60); Globulin 4.8 g/dL (2.2-4.2); Glucose 123 mg/dL (74-106); Potassium 3.9 mmol/L (3.5-5.1); Protein, Total 8.4 g/dL (6.4-8.2); Sodium Level 136 mmol/L (136-145); Thyroid Stim Hormone (TSH) 1.07 uIU/mL (0.358-3.74)
== END | disposition home or self-care (01) ==
LOC: POLAB3 09:40
PROVIDERS: PCP Family Medicine Geriatric Medicine; Visit Provider Family Medicine Geriatric Medicine
DX: E55.9 Vitamin D deficiency, unspecified (principal); E11.65 Type 2 diabetes mellitus with hyperglycemia; I10 Essential (primary) hypertension
CPT/HCPCS: 36415; 80053; 82306; 84443; 85025

== ENCOUNTER → 2022-08-11 | Outpatient (CLI) | payer MEDICARE, OTHER, SELFPAY ==
[2022-08-11 12:12] LABS: Absolute Lymphocyte Count 2.27 X10^3/uL (0.83-4.51); Absolute Neutrophil Count 6.8 X10^3/uL (2.0-7.7); Basophil# 0.09 X10^3/uL; Basophil% 0.9 % (0-1); Eosinophil# 0.23 X10^3/uL; Eosinophils% 2.2 % (0-5); Hematocrit 36.9 % (40-54); Hemoglobin 12.1 g/dL (13.0-16.5); Lymphocyte # 2.27 X10^3/ul (0.83-4.51); Lymphocyte % 22.1 % (19-41); Mean Corp Hgb Conc 32.8 g/dL (32-36); Mean Corpuscular Hgb 29.8 pg (27.0-32.0); Mean Corpuscular Volume 90.9 fL (80-94); Mean Platelet Vol. 9.7 fl (6.2-12.0); Monocyte# 0.86 X10^3/uL; Monocyte% 8.4 % (0-10); NRBC Flagged by Analyzer 0 % (0-5); Neutrophil % 66.1 % (47-70); Platelet Count 330 K/mm3 (150-450); RBC Distribution Width CV 14.3 % (11.6-14.6); RBC Distribution Width SD 47.8 fl (35.1-43.9); Red Blood Count 4.06 M/mm3 (4.6-6.2); Vitamin D,25 Hydroxy 49.9 ng/mL; White Blood Count 10.3 K/mm3 (4.4-11.0)
[2022-08-11 12:22] LABS: ALB/GLOB Ratio 0.9 RATIO (0.9-2.4); AST(SGOT) 25 U/L (15-37); Alanine Aminotransfer ALT/SGPT 34 U/L (16-61); Albumin, Serum 3.7 g/dL (3.2-5.0); Alkaline Phosphatase 89 U/L (45-117); Anion Gap 6 (5-15); BUN 27 mg/dL (7-18); BUN/Creat Ratio 20.6 RATIO (10-20); Calcium,Total 8.8 mg/dL (8.5-10.1); Chloride 107 mmol/L (98-107); Creatinine, Serum 1.31 mg/dL (0.70-1.30); EST Glomerular Filtration Rate 57 mL/min (>60); Est Glom Filt Rate - Afr Amer 69 mL/min (>60); Globulin 4.2 g/dL (2.2-4.2); Glucose 117 mg/dL (74-106); Protein, Total 7.9 g/dL (6.4-8.2); Sodium Level 137 mmol/L (136-145); Thyroid Stim Hormone (TSH) 1.49 uIU/mL (0.358-3.74)
== END | disposition home or self-care (01) ==
LOC: POLAB3 09:46
PROVIDERS: PCP Family Medicine Geriatric Medicine; Visit Provider Family Medicine Geriatric Medicine
DX: E11.65 Type 2 diabetes mellitus with hyperglycemia (principal); E55.9 Vitamin D deficiency, unspecified; I10 Essential (primary) hypertension
CPT/HCPCS: 36415; 80053; 82306; 84443; 85025

== ENCOUNTER → 2022-09-03 | Outpatient (CLI) | payer MEDICARE, OTHER, SELFPAY ==
--- NOTE | 2022-09-03 07:54 | CT_ITS ---
STUDY: LOW DOSE CT LUNG CANCER SCREENING REASON FOR EXAM: Male, 72 years old. NICOTINE DEPENDENCE. 1 PPD X 30 YRS. QUIT 2 YRS AGO RADIATION DOSAGE (If Supplied By Facility): CTDIvol = ( 3.02 ) mGy, DLP = ( 102.69 ) mGycm TECHNIQUE: No contrast was administered. Low dose technique was utilized (average mAS-38 and kVp 120). 1.25 mm axial source images with a slice interval of 1.25-mm were reconstructed in lung windows. 2.5 mm axial source images with a slice interval of 2.5-mm were reconstructed in lung windows. 5.0 mm axial source images with a slice interval of 5.0-mm were reconstructed in soft tissue windows. COMPARISON: Comparison is made with prior study dated July 31, 2018. NODULES: There is a 2 mm nodule in the right upper lobe anteriorly as seen on axial image #70. Stable 8 mm x 7 mm pleural-based nodule in the peripheral lateral aspect of the right upper lobe as seen on axial image #92. This most likely represents a focal area of scarring. Mild scarring is also seen in the anterior medial aspect of the left upper lobe. There is a new 1 cm spiculated nodule in the anterior aspect of the right upper lobe as seen on axial image #114. Stable nodular densities in the right middle lobe. Emphysema: Mild degree of emphysematous changes. Endobronchial lesion: Unremarkable Aorta: Calcification of the aortic arch. CORONARY ARTERIES: Coronary artery calcification is seen. Heart: Unremarkable Pulmonary artery: Unremarkable Mediastinal nodes: Other chest and abdominal findings: CT/Low Dose CT Lung Screening IMPRESSION: Lung-RADS category 4B - Chest CT with or without contrast, PET/CT and/or tissue sampling can be obtained depending on the probability of malignancy and comorbidities. IMPORTANT NOTES FOR USE: ACR Lung-RADS Version 1.1 Assessment Categories Release Date: 2018 Category: Coded 0-4 bases on nodule(s) with highest degree of suspicion. Negative screen is defined as categories 1 and 2; a positive screen is defined as categories 3 and 4. Category 3 and 4A nodules that are unchanged on interval CT should be coded as category 2, and individuals returned to screening in 12 months. Category 4X: Category 3 or 4 nodules with additional imaging findings that increase the suspicion of lung cancer, such as spiculation, GGN that doubles in size in 1 year, enlarged lymph notes, etc. Category Modifiers: S (significant finding unrelated to lung cancer) Electronically Signed: Girish Hernandez MD at 13:18 EDT ,
== END | disposition home or self-care (01) ==
LOC: CT 07:53
PROVIDERS: PCP Family Medicine Geriatric Medicine; Referring Provider Family Medicine Geriatric Medicine; Visit Provider Family Medicine Geriatric Medicine
DX: Z12.2 Encounter for screening for malignant neoplasm of respiratory organs (principal); Z87.891 Personal history of nicotine dependence
CPT/HCPCS: 71271

== ENCOUNTER → 2022-09-08 | Outpatient (CLI) | payer MEDICARE, OTHER, SELFPAY ==
--- NOTE | 2022-09-08 07:44 | AAVD_ITS ---
Reason For Study: AAA infrareanal Aorta Measurements Aorta Doppler Measurements Proximal aorta measures1.90 x 1.92cm. in cross- Peak systolic flow velocities within the proximal sectional axis. aorta measure 43.1 cm/sec. Proximal aorta measures2.22cm. in longitudinal Peak systolic flow velocities within the mid aorta axis. measure 40.3 cm/sec. Mid aorta measures2.72 x 2.70cm. in cross- Peak systolic flow velocities within the distal sectional axis. aorta measure 44.6 cm/sec. Mid aorta measures2.73cm. in longitudinal axis. Distal aorta measures3.47 x 3.21cm. in cross- sectional axis. Distal aorta measures3.4cm. in longitudinal axis. Left Iliac Artery Left iliac artery measures 1.84 x 1.52 cm. in the cross-sectional axis. Left iliac artery measures 1.53 cm. in the longitudinal axis. Peak systolic velocity in the left iliac artery measures 41.0 cm/sec. Right Iliac Artery Right iliac artery measures 1.67 x 1.61 cm. in the cross-sectional axis. Right iliac artery measures 1.67 cm. in the longitudinal axis. Peak systolic velocity in the right iliac artery measures 41.7 cm/sec. VL/Abd Aortic/IVC Duplex scan Interpretation Summary 3.47cm aortic aneurysm. Ordering Physician: Praveen Mcdonough Referring Physician: Carlyle Ren Chi Performed By: Hannah Weston, RDCS, RVT
== END | disposition home or self-care (01) ==
LOC: CVS 07:43
PROVIDERS: PCP Family Medicine Geriatric Medicine; Referring Provider Surgery Vascular Surgery; Visit Provider Surgery Vascular Surgery
DX: I71.43 Infrarenal abdominal aortic aneurysm, without rupture (principal)
CPT/HCPCS: 93978

== ENCOUNTER → 2022-09-30 | Outpatient (CLI) | payer MEDICARE, OTHER, SELFPAY ==
[2022-09-30 17:29] LABS: Microalbumin:Creatinine Ratio 438.5 mg/g CRE (<30 mg/g CRE)
== END | disposition home or self-care (01) ==
LOC: LABSPEC 15:48
PROVIDERS: PCP Family Medicine Geriatric Medicine; Referring Provider Internal Medicine Nephrology; Visit Provider Internal Medicine Nephrology
DX: N18.32 Chronic kidney disease, stage 3b (principal)
CPT/HCPCS: 82043; 82570

== ENCOUNTER → 2022-10-09 | Outpatient (CLI) | payer MEDICARE, OTHER, SELFPAY ==
--- NOTE | 2022-10-09 08:55 | US_ITS ---
STUDY: RENAL ULTRASOUND - COMPLETE REASON FOR EXAM: Male, 72 years old. CHRONIC KIDNEY DISEASE TECHNIQUE: Ultrasound evaluation of the kidneys was performed with real-time and static ny-scale imaging. COMPARISON: None. FINDINGS: RIGHT KIDNEY: Normal location of the right kidney, which is normal in size. The right kidney measures 11.1 cm. Increased echogenicity the renal cortex consistent with chronic medical renal disease. The renal cortex measures 2.1 cm. 1.67 m cyst in the upper pole the right kidney. 2 cm cyst in the midsection of right kidney. 4.4 cm cyst in the midsection of right kidney. There are no right renal calculi. There is no right hydronephrosis. DISTAL RIGHT URETER: There is non-visualization of the distal right ureter. There is no demonstrated right ureterovesical junction calculus. There is a visualized right ureteral jet. LEFT KIDNEY: Normal location of the left kidney, which is normal in size. The left kidney measures 13.6 cm. Increased echogenicity renal cortex consistent with chronic medical renal disease. The renal cortex measures 2.4 cm. 5.5 cm cyst in the midsection left kidney. 3.0 cm cyst lower pole the left kidney. Another 3 cm cyst lower pole left kidney. There are no left renal calculi. There is no left hydronephrosis. DISTAL LEFT URETER: There is non-visualization of the distal left ureter. There is no demonstrated left ureterovesical junction calculus. There is a visualized left ureteral jet. BLADDER: The distended urinary bladder has a volume of 32 ml. The empty urinary bladder has a volume of ml. There is a normal wall thickness of the distended urinary bladder. There is no demonstrated mass within the urinary bladder. There are no demonstrated bladder calculi. Incidentally noted is a 3.5 cm heterogeneous hyperechoic mass the right lobe of liver likely consistent with hemangioma. Correlation with liver mass protocol CT is recommended. US/Kidney and Bladder IMPRESSION: 1. Chronic medical renal disease but no hydronephrosis to suggest obstruction. 2. Multiple bilateral renal cysts. 3. 3.5 cm heterogeneous hepatic mass and correlation with liver mass protocol CT is recommended. Electronically Signed: Nikunj Gutierrez MD at 22:27 EDT ,
== END | disposition home or self-care (01) ==
LOC: US 08:54
PROVIDERS: PCP Family Medicine Geriatric Medicine; Referring Provider Internal Medicine Nephrology; Visit Provider Internal Medicine Nephrology
DX: N18.32 Chronic kidney disease, stage 3b (principal)
CPT/HCPCS: 76770

== ENCOUNTER → 2022-11-02 | Outpatient (CLI) | payer MEDICARE, OTHER, SELFPAY ==
--- NOTE | 2022-11-02 08:30 | PET_ITS ---
EXAMINATION: FDG PET-CT INDICATIONS: A 72-year-old male with history of pulmonary nodularity. COMPARISON EXAMINATION: Prior FDG PET study dated 06/10/14 INDEX LESION SIZE SUV INTERPRETATION Abdominal retroperitoneum, periaortic 12.1-mm 3.5 Warrants further investigation with CT of the abdomen and pelvis to confirm the presence of soft tissue mass formation Right upper lung field, right upper lobe 1.5 (max) Quantitative criteria for viable neoplasm are not fulfilled Mediastinum, bilateral thoracic perihilum 2.4 (max) Quantitative criteria for viable neoplasm are not fulfilled TECHNIQUE: Following the intravenous administration of 13.8 mCi of F-18 deoxyglucose via the right hand, multiplanar image acquisitions of the neck, chest, abdomen and pelvis to level of mid thigh, obtained at one hour post radiopharmaceutical administration contemporaneously interpreted with the current CT of the neck, chest, abdomen and pelvis, to level of mid thigh, dated 11/02/22 via coregistration and FDG PET study dated 06/10/14 reveals: BLOOD GLUCOSE LEVEL:?? 72 mg/dl?HEIGHT:?71 inches?WEIGHT: 190 lbs. FINDINGS: Head/Neck: There is no evidence of abnormal increased glucose metabolism in the pharyngeal mucosal space, parapharyngeal space, bilateral-lateral and anterior neck, hypopharynx and distribution of the laryngeal structures. The visualized portion of the cerebral cortical-subcortical structures demonstrate symmetric and preserved glucose metabolism. CHEST: Facilitated uptake is noted in the right upper anteromedial lung zone, right upper lobe generating a calculated maximal standard uptake value of 1.5. Facilitated uptake is defined in the carinal level mediastinum and bilateral thoracic perihilum. The calculated maximal standard uptake value is 2.4. Quantitative criteria for viable neoplasm are not fulfilled. Pertinent chest CT findings are as follows. Bilateral axillary soft tissue densities demonstrate no evidence of quantitatively significant increased FDG uptake. There is atherosclerotic calcification defined in the thoracic aorta without evidence of dilatation-aneurysm formation. Coronary arterial calcification is observed. Additional parenchymal densities defined in the bilateral hemithorax demonstrate no evidence of increased FDG uptake. Abdomen/Pelvis: Facilitated uptake is noted in the mid abdominal retroperitoneum, periaortic in location in the inferior mesenteric lymph node basin. The calculated maximal standard uptake value is 3.5. The maximal axial diameter of the metabolic, morphologic abnormality is 12.1-mm. Normal physiologic distribution of the radiopharmaceutical is apparent in the hepatic (3.9) and splenic parenchyma, both renal units, bladder and visualized intestinal tract. Pertinent abdomen and pelvis CT findings are as follows. There dilatation of the abdominal aorta measuring approximately 35.3-mm. Atherosclerotic calcification is defined in the abdominal aorta, as well as abdominal and pelvic arterial vasculature. Exophytic cyst formation is defined in the bilateral kidneys. Calcification is noted in the left renal unit. A fat containing left inguinal hernia is noted. Right and left inguinal soft tissue densities are non-glucose avid. Skeletal: There are no well-defined sclerotic-lytic changes manifest on review of the appendicular-axial skeletal structures. Degenerative changes are noted in the cervical, thoracic and lumbar spine without evidence of increased radiopharmaceutical concentration. PET/PET/CT Tumor Base -Thigh Init IMPRESSION: 1. The increase in radiopharmaceutical concentration defined in the abdominal retroperitoneum adjacent to the abdominal aorta in the inferior mesenteric lymph node basin fulfills quantitative criteria for viable neoplasm. Correlation with CT of the abdomen and pelvis with oral and intravenous contrast is recommended to confirm the presence of soft tissue mass formation. 2. Facilitated uptake noted in the right upper hemithorax pulmonary parenchyma does not fulfill quantitative criteria for viable neoplasm. (Chen et al, Annals of Internal Medicine, 138:724, 2003). 3. The mediastinal and bilateral thoracic perihilar hypermetabolic foci do not fulfill quantitative criteria for viable neoplasm. (Rachael et al, Journal of Clinical Oncology 16:2142, 1998). Electronic Signature Nikunj Masters D.O. Accurate Quantification of SUVs for this report are calculated using the exclusive [employer] Technology. ([place]. Patent No. [phone] B2 [phone] [place] patent [phone]). Standardization and correction of the FDG SUV metric via [employer] technology allow for vendor non-specific objective quantitative examination comparison and optimization of the sensitivity and specificity of the FDG PET-CT examination. Electronically Signed: Nikunj Masters, at 21:58 EDT ,
== END | disposition home or self-care (01) ==
PROVIDERS: PCP Family Medicine Geriatric Medicine; Referring Provider Family Medicine Geriatric Medicine; Visit Provider Family Medicine Geriatric Medicine
DX: R91.8 Other nonspecific abnormal finding of lung field (principal)
CPT/HCPCS: 78815; A9552

== ENCOUNTER → 2022-11-03 | Outpatient (CLI) | payer MEDICARE, OTHER, SELFPAY ==
--- NOTE | 2022-11-03 09:31 | CDU_ITS ---
Reason For Study: Carotid stenosis s/p right stent placement Rt. Velocities/BP Lt. Velocities/BP Prox CCA 60.7/14.5 cm/sec. Prox CCA 93.8/16.8 cm/sec. Mid CCA 68.3/17.3 cm/sec. Mid CCA 65.2/19 cm/sec. Dist CCA 74/20.1 cm/sec. Dist CCA 70.7/21.2 cm/sec. Bulb, 63/18.8 cm/sec. Prox ICA 89.4/25.6 cm/sec. Prox ICA 72.8/20 cm/sec. Mid ICA 78.4/35.5 cm/sec. Mid ICA 87.6/29.8 cm/sec. Dist ICA 117/42.1 cm/sec. Dist ICA 67.3/21.7 cm/sec. Lt. ICA/CCA = 1.65. Rt. ICA/CCA = 1.28. Prox ECA 103.6/6.9 cm/sec. Prox ECA 113.3 cm/sec. Lt. Vert. 64.1/17.9 cm/sec. Rt. Vert. 52/14.6 cm/sec. Right Extracranial There is homogeneous, smooth atherosclerotic plaque noted in the right common carotid artery. There is homogeneous, smooth atherosclerotic plaque noted in the right internal carotid artery. Stent noted in the right CCA distal to ICA prox. There is intimal thickening but no significant atherosclerotic plaque noted in the right external carotid artery. Antegrade flow is noted in the right vertebral artery. Left Extracranial There is homogeneous, smooth atherosclerotic plaque noted in the left common carotid artery. There is heterogeneous, irregular atherosclerotic plaque noted in the left internal carotid artery. There is heterogeneous, irregular atherosclerotic plaque noted in the left external carotid artery. Antegrade flow is noted in the left vertebral artery. Procedure Carotid Duplex 21244. This is a Carotid Duplex examination using B-mode, color flow and specral Doppler. Exam performed in department. VL/Carotid Duplex Ultrasound Interpretation Summary Mild (<50%) stenosis right extracranial internal carotid. Mild (<50%) stenosis left extracranial internal carotid. Flow within the vertebral arteries is antegrade bilaterally. Ordering Physician: Vidal Azar Referring Physician: Carlyle Ren Chi Performed By: Dorita Silva RVT
== END | disposition home or self-care (01) ==
LOC: CVS 09:31
PROVIDERS: PCP Family Medicine Geriatric Medicine; Referring Provider Psychiatry & Neurology Neurology; Visit Provider Psychiatry & Neurology Neurology
DX: I65.29 Occlusion and stenosis of unspecified carotid artery (principal); Z86.73 Personal history of transient ischemic attack (TIA), and cerebral infarction without residual deficits
CPT/HCPCS: 93880

== ENCOUNTER → 2022-11-04 | Outpatient (CLI) | payer MEDICARE, OTHER, SELFPAY ==
[2022-11-04] VITALS (8 sets, daily range): BP systolic 147–195; BP diastolic 63–105; PULSE 59–82; RESP 11–18; TEMP 36.4; O2SAT 97–100; BMI 27.2
--- NOTE | 2022-11-04 08:53 | CT_ITS ---
STUDY: CT CHEST WITHOUT CONTRAST REASON FOR EXAM: Male, 72 years old. LUNG MASS RADIATION DOSAGE (If Supplied By Facility): CTDIvol = ( 22.22 ) mGy, DLP = ( 396.13 ) mGycm TECHNIQUE: Transaxial imaging was performed without the administration of intravenous contrast material. Individualized dose optimization techniques were used for this CT. COMPARISON: Comparison is made with prior study dated September 03, 2022. FINDINGS: CHEST The patient was scheduled for biopsy of a new spiculated nodule in the right upper lobe. On this repeat examination, the nodular density seen on prior study on axial image #114 is not visualized at this time. The biopsy was postponed. There is no demonstrated pleural abnormality. CT/Chest without Contrast IMPRESSION: The previously seen nodular density in the anterior aspect of the right upper lobe is not seen at this time. Electronically Signed: Girish Hernandez MD at 13:22 EDT ,
[2022-11-04 09:07] LABS: Prothrombin Time (Protime)PT. 13.2 SECONDS (11.7-14.9)
[2022-11-04 09:08] LABS: Partial Thromboplast Time 29.7 Seconds (24.1-36.2)
[2022-11-04] MEDS: 0.9% Saline Lock 10 ML Syringe IV (09:35)
[2022-11-04 09:36] LABS: Ferritin 140 ng/mL (26-388); Iron 37 ug/dL (65-175)
[2022-11-04] MEDS: Midazolam 2 MG/2 ML Syringe IV (09:50)
[2022-11-04] MEDS: fentaNYL 100 MCG/2 ML Ampul IV (09:52)
== END | disposition home or self-care (01) ==
PROVIDERS: Psychiatry & Neurology Neurology; Radiology Diagnostic Radiology; PCP Family Medicine Geriatric Medicine; Referring Provider Family Medicine Geriatric Medicine; Visit Provider Family Medicine Geriatric Medicine
DX: R91.8 Other nonspecific abnormal finding of lung field (principal); E11.51 Type 2 diabetes mellitus with diabetic peripheral angiopathy without gangrene; I69.354 Hemiplegia and hemiparesis following cerebral infarction affecting left non-dominant side; F33.42 Major depressive disorder, recurrent, in full remission; E11.65 Type 2 diabetes mellitus with hyperglycemia; E11.22 Type 2 diabetes mellitus with diabetic chronic kidney disease; C61 Malignant neoplasm of prostate; N18.31 Chronic kidney disease, stage 3a; R16.0 Hepatomegaly, not elsewhere classified; I12.9 Hypertensive chronic kidney disease with stage 1 through stage 4 chronic kidney disease, or unspecified chronic kidney disease; E78.49 Other hyperlipidemia; E55.9 Vitamin D deficiency, unspecified; D50.9 Iron deficiency anemia, unspecified; F17.210 Nicotine dependence, cigarettes, uncomplicated; Z79.82 Long term (current) use of aspirin; Z79.84 Long term (current) use of oral hypoglycemic drugs; Z79.899 Other long term (current) drug therapy; Z53.8 Procedure and treatment not carried out for other reasons
CPT/HCPCS: 36415; 71250; 82728; 83540; 85610; 85730; 99156; J7050; A4216

== ENCOUNTER → 2022-11-17 | Outpatient (CLI) | payer MEDICARE, OTHER, SELFPAY ==
--- NOTE | 2022-11-17 17:53 | CT_ITS ---
STUDY: CT ABDOMEN AND PELVIS WITH CONTRAST REASON FOR EXAM: Male, 72 years old. LIVER MASS on PET scan RADIATION DOSAGE (If Supplied By Facility): CTDIvol = ( 17.19 ) mGy, DLP = ( 1675.59 ) mGycm TECHNIQUE: Transaxial images were obtained from the dome of the diaphragm to the symphysis pubis without oral contrast. IV 100mL Isovue-300 was administered. Sagittal and coronal images were reconstructed. Individualized dose optimization techniques were used for this CT. COMPARISON: None. FINDINGS: The visualized lung bases are unremarkable. The visualized portions of the heart are within normal limits. Liver is normal size and demonstrates homogeneous attenuation. There is a small there is a poorly defined nodule with a peripherally enhancing rim in the right lobe which is isoattenuating with normal liver on the delayed images most likely hemangioma. Bile ducts are nondilated. Normal gallbladder and extrahepatic biliary system. Normal spleen. Normal pancreas. Normal bilateral adrenal glands. No evidence for obstruction. Multiple renal cysts are noted which will not require additional imaging. . Normal visualized stomach. Normal small intestine. Normal colon. No evidence for acute appendicitis.. Atherosclerotic changes of the aorta with infrarenal aortic aneurysm measuring approximately 3.6 x 8.6 x 2.95 cm. Normal inferior vena cava. Tiny subcentimeter periaortic nodes most likely benign utilizing CT size. Criteria. Concentric thickening of the flores of bladder possibly due to inflammatory disease postradiation changes or chronic outlet obstruction. Postop change status post prostatectomy Small bilateral fat-containing inguinal hernias.. Normal osseous structures. CT/Abdomen/Pelvis WITH Contrast IMPRESSION: Probable hepatic hemangioma.. MRI would be helpful for confirmation No definitive evidence for hepatic metastasis or retroperitoneal adenopathy Multiple bilateral renal cysts Infrarenal aortic aneurysm without periaortic leak or dissection Electronically Signed: Dick Bates MD at 19:15 EDT ,
[2022-11-17 18:21] LABS: CREATININE FINGERSTICK 1.1 mg/dL (0.70-1.30); EGFR FINGERSTICK > 60.0000 mL/min (>60)
== END | disposition home or self-care (01) ==
LOC: CT 17:51
PROVIDERS: PCP Family Medicine Geriatric Medicine; Referring Provider Family Medicine Geriatric Medicine; Visit Provider Family Medicine Geriatric Medicine
DX: R16.0 Hepatomegaly, not elsewhere classified (principal)
CPT/HCPCS: 74177; Q9967

== ENCOUNTER → 2022-12-02 | Outpatient (CLI) | payer MEDICARE, OTHER, SELFPAY ==
--- NOTE | 2022-12-02 10:34 | MRI_ITS ---
STUDY: MRI ABDOMEN WITH AND WITHOUT CONTRAST REASON FOR EXAM: Male, 72 years old. LIVER MASS TECHNIQUE: Standardized fat and water weighted pulse sequences were obtained in all 3 orthogonal planes post contrast administration. CLARISCAN 17 CC was administered for the contrast portion of the examination. COMPARISON: CT 11/17/2022, PET scan 11/02/2022 FINDINGS: Base of the chest are grossly unremarkable.. In segment 7, there is a T2 bright and T1 dark lobular lesion measuring 2.4 x 3.9 cm, correlating to the lesion on recent CT. Following IV contrast, there is expected, peripheral nodular enhancement with progressive filling, typical of benign hemangioma. Other note, NO abnormal FDG activity depicted on recent PET scan in this region. There is otherwise normal appearance of the liver without additional lesion. Normal gallbladder and extrahepatic biliary system. Normal spleen. Normal pancreas. Normal bilateral adrenal glands. No hydronephrosis. Bilateral renal cysts, some of which are hyperintense on T1 and do not demonstrate significant contrast enhancement (Bosniak I and II). Visualized hollow viscus structures are unremarkable. Abdominal aortic aneurysm is grossly stable, although better seen on prior CT. Normal inferior vena cava. Normal retroperitoneum. Normal abdominal wall. No bone marrow edema. Degenerative changes of the lumbar spine with acquired canal stenosis most evident at L2-L3, L3-L4 and L4-L5. MRI/MRI Abd WITH and W/O Contrast IMPRESSION: 1. 2.4 x 3.9 cm lesion of the right hepatic lobe (as seen on CT) is characteristic of hemangioma. ACR White Paper guidelines ([place], et al. JACR 2017; 14(11):5837-7887.) suggest no follow-up is necessary. 2. Bilateral renal cysts, simple and proteinaceous (Bosniak I and II). ACR White Paper guidelines ([place], et al. JACR 2018; 15(2):264-273) suggest no follow-up is necessary. Electronically Signed: Russ Harper MD ([place]) at 11:59 EDT ,
== END | disposition home or self-care (01) ==
LOC: MRI 10:26
PROVIDERS: PCP Family Medicine Geriatric Medicine; Referring Provider Family Medicine Geriatric Medicine; Visit Provider Family Medicine Geriatric Medicine
DX: R16.0 Hepatomegaly, not elsewhere classified (principal)
CPT/HCPCS: 74183; A9575; A4216

== ENCOUNTER → 2023-02-07 | Outpatient (CLI) | payer MEDICARE, OTHER, SELFPAY ==
[2023-02-07 11:24] LABS: Absolute Lymphocyte Count 1.88 X10^3/uL (0.83-4.51); Absolute Neutrophil Count 6.6 X10^3/uL (2.0-7.7); Basophil# 0.07 X10^3/uL; Basophil% 0.7 % (0-1); Eosinophil# 0.19 X10^3/uL; Hematocrit 35.1 % (40-54); Hemoglobin 11.4 g/dL (13.0-16.5); Lymphocyte # 1.88 X10^3/ul (0.83-4.51); Lymphocyte % 19.7 % (19-41); Mean Corp Hgb Conc 32.5 g/dL (32-36); Mean Corpuscular Hgb 29.2 pg (27.0-32.0); Mean Corpuscular Volume 89.8 fL (80-94); Mean Platelet Vol. 9.6 fl (6.2-12.0); Monocyte# 0.76 X10^3/uL; NRBC Flagged by Analyzer 0 % (0-5); Neutrophil % 69.3 % (47-70); Platelet Count 340 K/mm3 (150-450); RBC Distribution Width SD 50.3 fl (35.1-43.9); Red Blood Count 3.91 M/mm3 (4.6-6.2); White Blood Count 9.5 K/mm3 (4.4-11.0)
[2023-02-07 11:37] LABS: Vitamin D,25 Hydroxy 41.4 ng/mL
[2023-02-07 11:46] LABS: ALB/GLOB Ratio 0.8 RATIO (0.9-2.4); AST(SGOT) 16 U/L (15-37); Alanine Aminotransfer ALT/SGPT 20 U/L (16-61); Albumin, Serum 3.3 g/dL (3.2-5.0); Alkaline Phosphatase 102 U/L (45-117); Anion Gap 7 (5-15); BUN 28 mg/dL (7-18); Calcium,Total 8.7 mg/dL (8.5-10.1); Chloride 102 mmol/L (98-107); Creatinine, Serum 1.47 mg/dL (0.70-1.30); EST Glomerular Filtration Rate 50 mL/min (>60); Est Glom Filt Rate - Afr Amer 61 mL/min (>60); Globulin 4.4 g/dL (2.2-4.2); Glucose 143 mg/dL (74-106); Phosphorus 3.1 mg/dL (2.5-4.9); Potassium 3.9 mmol/L (3.5-5.1); Protein, Total 7.7 g/dL (6.4-8.2); Sodium Level 135 mmol/L (136-145); Thyroid Stim Hormone (TSH) 0.89 uIU/mL (0.358-3.74)
== END | disposition home or self-care (01) ==
LOC: POLAB3 09:36
PROVIDERS: PCP Family Medicine Geriatric Medicine; Visit Provider Family Medicine Geriatric Medicine
DX: E55.9 Vitamin D deficiency, unspecified (principal); E11.65 Type 2 diabetes mellitus with hyperglycemia; E11.22 Type 2 diabetes mellitus with diabetic chronic kidney disease; N18.32 Chronic kidney disease, stage 3b; I12.9 Hypertensive chronic kidney disease with stage 1 through stage 4 chronic kidney disease, or unspecified chronic kidney disease
CPT/HCPCS: 36415; 80053; 82306; 84100; 84443; 85025

== ENCOUNTER → 2023-08-15 | Outpatient (CLI) | payer MEDICARE, OTHER, SELFPAY ==
[2023-08-15 11:18] LABS: Absolute Lymphocyte Count 1.81 X10^3/uL (0.83-4.51); Absolute Neutrophil Count 5.1 X10^3/uL (2.0-7.7); Basophil# 0.06 X10^3/uL; Basophil% 0.8 % (0-1); Eosinophil# 0.22 X10^3/uL; Eosinophils% 2.8 % (0-5); Hematocrit 34.7 % (40-54); Hemoglobin 11.3 g/dL (13.0-16.5); Lymphocyte # 1.81 X10^3/ul (0.83-4.51); Lymphocyte % 22.7 % (19-41); Mean Corp Hgb Conc 32.6 g/dL (32-36); Mean Corpuscular Hgb 28.8 pg (27.0-32.0); Mean Corpuscular Volume 88.5 fL (80-94); Mean Platelet Vol. 9.2 fl (6.2-12.0); Monocyte# 0.75 X10^3/uL; Monocyte% 9.4 % (0-10); NRBC Flagged by Analyzer 0 % (0-5); Neutrophil # 5.11 X10^3/uL (2.7-7.7); Neutrophil % 63.9 % (47-70); Platelet Count 304 K/mm3 (150-450); RBC Distribution Width CV 15.3 % (11.6-14.6); RBC Distribution Width SD 49.3 fl (35.1-43.9); Red Blood Count 3.92 M/mm3 (4.6-6.2)
[2023-08-15 12:23] LABS: ALB/GLOB Ratio 0.8 RATIO (0.9-2.4); AST(SGOT) 21 U/L (15-37); Alanine Aminotransfer ALT/SGPT 19 U/L (16-61); Albumin, Serum 3.3 g/dL (3.2-5.0); Alkaline Phosphatase 80 U/L (45-117); Anion Gap 7 (5-15); BUN 31 mg/dL (7-18); BUN/Creat Ratio 19.1 RATIO (10-20); Calcium,Total 8.8 mg/dL (8.5-10.1); Chloride 106 mmol/L (98-107); Creatinine, Serum 1.62 mg/dL (0.70-1.30); EST Glomerular Filtration Rate 45 mL/min (>60); Est Glom Filt Rate - Afr Amer 54 mL/min (>60); Globulin 4.3 g/dL (2.2-4.2); Glucose 101 mg/dL (74-106); Iron 47 ug/dL (65-175); Potassium 3.9 mmol/L (3.5-5.1); Protein, Total 7.6 g/dL (6.4-8.2); Sodium Level 136 mmol/L (136-145); Thyroid Stim Hormone (TSH) 0.93 uIU/mL (0.358-3.74)
[2023-08-15 18:51] LABS: Vitamin D,25 Hydroxy 42.4 ng/mL
== END | disposition home or self-care (01) ==
LOC: LAB 10:44
PROVIDERS: Psychiatry & Neurology Neurology; PCP Family Medicine Geriatric Medicine; Referring Provider Family Medicine Geriatric Medicine; Visit Provider Family Medicine Geriatric Medicine
DX: E11.65 Type 2 diabetes mellitus with hyperglycemia (principal); I10 Essential (primary) hypertension; E55.9 Vitamin D deficiency, unspecified
CPT/HCPCS: 36415; 80053; 82306; 83540; 84443; 85025

== ENCOUNTER → 2024-04-19 | Outpatient (CLI) | payer MEDICARE, OTHER, SELFPAY ==
[2024-04-19 11:54] LABS: Absolute Lymphocyte Count 2.29 X10^3/uL (0.83-4.51); Absolute Neutrophil Count 7.9 X10^3/uL (2.0-7.7); Basophil# 0.05 X10^3/uL; Basophil% 0.4 % (0-1); Eosinophil# 0.14 X10^3/uL; Eosinophils% 1.2 % (0-5); Hematocrit 32.4 % (40-54); Hemoglobin 10.8 g/dL (13.0-16.5); Lymphocyte # 2.29 X10^3/ul (0.83-4.51); Lymphocyte % 19.5 % (19-41); Mean Corp Hgb Conc 33.3 g/dL (32-36); Mean Corpuscular Volume 86.9 fL (80-94); Mean Platelet Vol. 9.3 fl (6.2-12.0); Monocyte# 1.39 X10^3/uL; Monocyte% 11.8 % (0-10); NRBC Flagged by Analyzer 0 % (0-5); Neutrophil # 7.85 X10^3/uL (2.7-7.7); Neutrophil % 66.7 % (47-70); Platelet Count 372 K/mm3 (150-450); RBC Distribution Width CV 15.7 % (11.6-14.6); RBC Distribution Width SD 50.3 fl (35.1-43.9); Red Blood Count 3.73 M/mm3 (4.6-6.2); White Blood Count 11.8 K/mm3 (4.4-11.0)
[2024-04-19 12:15] LABS: Hemoglobin A1c 6.7 % (3.8-5.6)
[2024-04-19 12:36] LABS: ALB/GLOB Ratio 0.7 RATIO (0.9-2.4); AST(SGOT) 22 U/L (15-37); Alanine Aminotransfer ALT/SGPT 27 U/L (16-61); Alkaline Phosphatase 81 U/L (45-117); Anion Gap 8 (5-15); BUN 26 mg/dL (7-18); BUN/Creat Ratio 14.9 RATIO (10-20); Calcium,Total 8.5 mg/dL (8.5-10.1); Chloride 102 mmol/L (98-107); Cholesterol 176 mg/dL (200); Creatinine, Serum 1.74 mg/dL (0.70-1.30); EST Glomerular Filtration Rate 41 mL/min (>60); Est Glom Filt Rate - Afr Amer 50 mL/min (>60); Globulin 4.2 g/dL (2.2-4.2); Glucose 108 mg/dL (74-106); High Density Lipoprotein 39 mg/dL; Potassium 3.9 mmol/L (3.5-5.1); Protein, Total 7.2 g/dL (6.4-8.2); Sodium Level 135 mmol/L (136-145); Thyroid Stim Hormone (TSH) 0.715 uIU/mL (0.358-3.740); Triglycerides 182 mg/dL; Very Low Density Lipoprotein 36 mg/dL (5-40)
[2024-04-19 15:15] LABS: Ferritin 181 ng/mL (26-388); Iron 18 ug/dL (65-175); Iron Binding Capacity,Total 214 ug/dL (250-450); PERCENT IRON SATURATION 8.4 % (15.0-55.0)
== END | disposition home or self-care (01) ==
PROVIDERS: PCP Family Medicine Geriatric Medicine; Visit Provider Family Medicine Geriatric Medicine
DX: I10 Essential (primary) hypertension (principal); E11.65 Type 2 diabetes mellitus with hyperglycemia; E78.5 Hyperlipidemia, unspecified; D50.9 Iron deficiency anemia, unspecified

== ENCOUNTER → 2024-04-21 | Outpatient (CLI) | payer MEDICARE, OTHER, SELFPAY | END | disposition home or self-care (01) | LOC: LABSPEC 12:01 | PROVIDERS: PCP Family Medicine Geriatric Medicine; Referring Provider Family Medicine Geriatric Medicine; Visit Provider Family Medicine Geriatric Medicine | DX: D50.9 Iron deficiency anemia, unspecified (principal) ==

== ENCOUNTER → 2024-05-02 | Outpatient (CLI) | payer MEDICARE, OTHER, SELFPAY ==
--- NOTE | 2024-05-02 07:45 | RAD_ITS ---
EXAM: SMALL BOWEL SERIES ONLY CLINICAL HISTORY: Loss of appetite. Abdominal pain. COMPARISON: None. TECHNIQUE: The patient ingested barium. A small bowel follow-through examination was then obtained. FINDINGS: The terminal ileum was seen at 60 minutes following the ingestion of barium. No evidence of small-nan wel obstruction. No extrinsic or intrinsic mass lesion is seen. The terminal ileum is unremarkable. RAD/Small Bowel Series Only IMPRESSION: Unremarkable small bowel follow-through examination. Reading [id number]
== END | disposition home or self-care (01) ==
LOC: RAD 07:43
PROVIDERS: PCP Family Medicine Geriatric Medicine; Referring Provider Family Medicine Geriatric Medicine; Visit Provider Family Medicine Geriatric Medicine
DX: R10.13 Epigastric pain (principal); R63.8 Other symptoms and signs concerning food and fluid intake; K21.9 Gastro-esophageal reflux disease without esophagitis
CPT/HCPCS: 74250

== ENCOUNTER → 2024-05-07 | Outpatient (CLI) | payer MEDICARE, OTHER, SELFPAY ==
--- NOTE | 2024-05-07 10:02 | CDU_ITS ---
Reason For Study Reason For Study: Carotid stenosis Rt. Velocities/BP Lt. Velocities/BP Prox CCA 65.5/14.5 cm/sec. Prox CCA 77.3/16.8 cm/sec. Mid CCA 59.8/14.5 cm/sec. Mid CCA 71.8/23.4 cm/sec. CCA distal, prox stent, 73/17.3 cm/sec. Dist CCA 75.1/21.2 cm/sec. Bulb, mid stent, 48.7/15.7 cm/sec. Prox ICA 71.6/22.5 cm/sec. ICA prox, distal stent, 67.4/21.2 cm/sec. Mid ICA 86.3/26.2 cm/sec. Mid ICA 87.1/30.5 cm/sec. Dist ICA 99.8/31.1 cm/sec. Dist ICA 87.7/25.9 cm/sec. Lt. ICA/CCA = 1.39. Rt. ICA/CCA = 1.47. Prox ECA 89.4/9.1 cm/sec. Prox ECA 223.7/24.1 cm/sec. Lt. Vert. 56.9/17.6 cm/sec. Rt. Vert. 45.4/15.7 cm/sec. Right Extracranial There is homogeneous, smooth atherosclerotic plaque noted in the right common carotid artery. There is heterogeneous, irregular atherosclerotic plaque noted in the right internal carotid artery. Stent noted in the right CCA distal to ICA prox. There is heterogeneous, irregular atherosclerotic plaque noted in the right external carotid artery. Antegrade flow is noted in the right vertebral artery. Left Extracranial There is homogeneous, smooth atherosclerotic plaque noted in the left common carotid artery. There is heterogeneous, irregular atherosclerotic plaque noted in the left internal carotid artery. There is heterogeneous, irregular atherosclerotic plaque noted in the left external carotid artery. Antegrade flow is noted in the left vertebral artery. Procedure Carotid Duplex 44856. This is a Carotid Duplex examination using B-mode, color flow and specral Doppler. Exam performed in department. VL/Carotid Duplex Ultrasound Interpretation Summary Mild (<50%) stenosis right extracranial internal carotid. Mild (<50%) stenosis left extracranial internal carotid. Flow within the vertebral arteries is antegrade bilaterally. Ordering Physician: Vidal Azar Referring Physician: Carlyle Ren Chi Performed By: Dorita Silva RVT
== END | disposition home or self-care (01) ==
LOC: CVS 10:01
PROVIDERS: PCP Family Medicine Geriatric Medicine; Referring Provider Psychiatry & Neurology Neurology; Visit Provider Psychiatry & Neurology Neurology
DX: I65.23 Occlusion and stenosis of bilateral carotid arteries (principal)
CPT/HCPCS: 93880

== ENCOUNTER → 2024-06-12 | Outpatient (CLI) | payer MEDICARE, OTHER, SELFPAY ==
--- NOTE | 2024-06-12 12:46 | CT_ITS ---
PROCEDURE: LOW DOSE CT LUNG SCREENING REASON FOR EXAM: LUNG CANCER SCREENING TECHNIQUE: Low Dose CT Lung Screening without contrast COMPARISON: Comparison is made with prior study dated September 03, 2022. FINDINGS: PULMONARY NODULES: (Only nodules >6mm are reported) Nodules described below are on series 1 unless otherwise specified. Pulmonary Nodules: The previously seen 1 cm spiculated nodule in the anterior aspect of the right upper lobe has decreased in size. It presently measures 7 mm. It is not as well spiculated. Stable 2 mm noncalcified nodule in the right upper lobe. Stable pleural-based nodular density in the right lateral upper lobe. Hardware:None Lymph Nodes:No mediastinal hilar or axillary lymphadenopathy. Heart and Vasculature:Normal heart size. No pericardial effusion.Thoracic aorta and pulmonary arteries have normal contours; noncontrast technique limits evaluation. Coronary Artery Calcifications: Present Lungs and Airways: Mild emphysematous changes are present. Pleura:No pleural effusion. No pneumothorax. Upper Abdomen:Visualized portions of the upper abdominal viscera are unremarkable. Bones:Degenerative changes of the thoracic spine. CT/Low Dose CT Lung Screening IMPRESSION: 1. BASED ON THE ACR LUNG RADS FOR THE MOST SUSPICIOUS NODULE (IF ANY) DESCRIBE D IN THIS REPORT, THE OVERALL LUNG RADS SCORE IS 2.2 - BENIGN (BASED ON IMAGING FEATURES OR INDOLENT BEHAVIOR). RECOMMEND 12-Tue SCREENING LDCT.. 2. SMOKING CESSATION COUNSELING IS RECOMMENDED IF THE PATIENT IS STILL SMOKING . 3. OTHER SIGNIFICANT FINDINGSNone. One or more dose reduction techniques were used (e.g., Automated exposure contr ol, adjustment of the mA and/or kV according to patient size, use of iterative reconstruction technique). The following information is provided for reference:Lung-RADS 2021 Assessment C ategories. Additional information involving Lung-RADS is available at www.acr.org. 0-INCOMPLETE 1-NEGATIVE:No nodules or definitely benign nodules. Complete, central, popcorn , or centric ring calcifications OR fat containing 2-BENIGN APPEARANCE (based on imaging features or indolent behavior). Juxtaple ural nodule: < 10mm AND solid; smooth margins; oval, entiform, or triangular shape Solid nodule: <6mm at baseline or new< 4mm Part solid Nodule: < 6mm total mean diameter at baseline Nonsolid nodule:(GGN) < 30mm OR >=30mm stable or slowly growing Airway nodule, subsegmental at baseline, new, or stable Category 3 nodule stabl e or decreased in size at 6-month follow-up CT or Category 3 or 4A nodules that resolve on follow-up OR category 4B findings prov en to be benign following diagnotic work up. 3 - Probably Benign (Based on imaging features or behavior) Solid Nodule: >= 6 to <8mm at baseline OR new 4 to <6mm Part-solid nodule: >= 6mm toal mean diam. with solid component <6mm at baseline OR new < 6mm total mean diam. Non-solid nodule: GGN >= 30mm at baseline or new Atypical pulmonary cyst: Growing cystic component (mean diam.) of thick-walled cyst Category 4A nodule stable or decreased in size at 3-month follow-up CT (excl.ai rway). 4A - Suspicious Solid nodule: >=8 to < 15mm at baseline OR growing < 8mm OR new 6 to < 8mm Part solid nodule: >= 6mm total mean diam. w/ solid component >=6mm to < 8mm at baseline OR new or growing < 4mm solid component Airway nodule, segmental or more proximal at baseline or new Atypical pulmonary cyst: Thick-walled OR multilocular at baseline OR becomes mu ltilocular 4B - Very Suspicious Airway nodule, segmental or more proximal, and stable or growing Solid nodule: >= 15mm at baseline OR new or growing >= 8mm Part solid nodule: Solid component >= 8mm OR new or growing >= 4mm solid compon ent Atypical pulmonary cyst: Thick-walled with growing wall thickness/nodularity OR Growing multilocular (mean diam.) OR Multilocular with increased loculation or new/increased opacity Slow-growing solid or part solid nodule w/ growth over multiple screening exams 4X - Very Suspicious Category 3 or 4 nodules with additional features that increase the suspicion fo r lung cancer. S - Clinically Significant or potentially significant findings (non-lung cancer ) Reading Location: [place] [id number]
== END | disposition home or self-care (01) ==
LOC: CT 12:46
PROVIDERS: PCP Family Medicine Geriatric Medicine; Referring Provider Internal Medicine Hematology & Oncology; Visit Provider Internal Medicine Hematology & Oncology
DX: Z12.2 Encounter for screening for malignant neoplasm of respiratory organs (principal); Z87.891 Personal history of nicotine dependence
CPT/HCPCS: 71271

== ENCOUNTER → 2024-08-15 | Outpatient (CLI) | payer MEDICARE, OTHER, SELFPAY ==
[2024-08-15 11:38] LABS: Absolute Lymphocyte Count 2.58 X10^3/uL (0.83-4.51); Absolute Neutrophil Count 6.5 X10^3/uL (2.0-7.7); Basophil% 0.9 % (0-1); Eosinophil# 0.33 X10^3/uL; Hematocrit 35.1 % (40-54); Hemoglobin 11.4 g/dL (13.0-16.5); Lymphocyte # 2.58 X10^3/ul (0.83-4.51); Lymphocyte % 23.8 % (19-41); Mean Corp Hgb Conc 32.5 g/dL (32-36); Mean Corpuscular Hgb 29.4 pg (27.0-32.0); Mean Corpuscular Volume 90.5 fL (80-94); Mean Platelet Vol. 9.5 fl (6.2-12.0); Monocyte# 1.22 X10^3/uL; Monocyte% 11.3 % (0-10); NRBC Flagged by Analyzer 0 % (0-5); Neutrophil # 6.45 X10^3/uL (2.7-7.7); Neutrophil % 59.6 % (47-70); Platelet Count 325 K/mm3 (150-450); RBC Distribution Width CV 15.3 % (11.6-14.6); RBC Distribution Width SD 50.8 fl (35.1-43.9); Red Blood Count 3.88 M/mm3 (4.6-6.2); White Blood Count 10.8 K/mm3 (4.4-11.0)
[2024-08-15 12:52] LABS: ALB/GLOB Ratio 1.1 RATIO (0.9-2.4); AST(SGOT) 23 U/L (<=37); Alanine Aminotransfer ALT/SGPT 16 U/L (<=46); Albumin, Serum 3.9 g/dL (3.4-4.8); Alkaline Phosphatase 87 U/L (40-129); Anion Gap 11 (5-15); BUN 37 mg/dL (4-19); BUN/Creat Ratio 21.6 RATIO (10-20); Calcium,Total 9.4 mg/dL (7.6-11.0); Carbon Dioxide 21.4 mmol/L (21.0-32.0); Chloride 103 mmol/L (98-108); Creatinine, Serum 1.69 mg/dL (0.70-1.20); EST Glomerular Filtration Rate 42 (>60); Globulin 3.4 g/dL (2.2-4.2); Glucose 110 mg/dL (70-99); Potassium 4.5 mmol/L (3.3-5.1); Protein, Total 7.3 g/dL (5.9-8.4); Sodium Level 135 mmol/L (133-145); Total Bilirubin 0.22 mg/dL (0.00-1.30)
[2024-08-15 12:54] LABS: Vitamin D,25 Hydroxy 24.2 ng/mL (30-100)
== END | disposition home or self-care (01) ==
LOC: LAB 10:28
PROVIDERS: PCP Family Medicine Geriatric Medicine; Referring Provider Family Medicine Geriatric Medicine; Visit Provider Family Medicine Geriatric Medicine
DX: E11.65 Type 2 diabetes mellitus with hyperglycemia (principal); I10 Essential (primary) hypertension; E55.9 Vitamin D deficiency, unspecified
CPT/HCPCS: 36415; 80053; 82306; 84443; 85025

== ENCOUNTER → 2024-12-27 | Outpatient (CLI) | payer MEDICARE, OTHER, SELFPAY ==
--- NOTE | 2024-12-27 07:42 | ART_ITS ---
Reason For Study Reason For Study: Atherosclerosis Procedure A bilateral lower extremity continuous wave Doppler with analog waveform analysis and ankle brachial indexes. Left Segmental Pressures Left brachial= 144mmHg. Left posterior tibial artery = 96mmHg. Left dorsalis pedis artery = 82mmHg. Left digit = 56 mmHg. The left posterior tibial artery waveforms are biphasic. The left dorsalis pedis waveforms are biphasic. Right Segmental Pressures Right brachial= 132mmHg. Right posterior tibial artery = 123mmHg. Right dorsalis pedis artery = 111mmHg. Right digit = 61 mmHg. The right posterior tibial artery waveforms are triphasic. The right dorsalis pedis waveforms are triphasic. Indices The right ankle brachial index by the posterior tibial artery is 0.85. The right ankle brachial index by the dorsalis pedis is 0.77. The right digital-brachial index is 0.42. The left ankle brachial index by the posterior tibial artery is 0.67. The left ankle brachial index by the dorsalis pedis is 0.57. The left digital-brachial index is 0.39. VL/Ankle Brachial Index Interpretation Summary The right resting ankle-brachial index appears mildly abnormal. The left restin g ankle-brachial index appears moderately abnormal. Ordering Physician: Praveen Mcdonough Referring Physician: Carlyle Ren Chi Performed By: Yuval Stover RVT and Student
--- NOTE | 2024-12-27 07:42 | AAVD_ITS ---
Reason For Study Reason For Study: Atherosclerosis W Claudication Aorta Measurements Aorta Doppler Measurements Proximal aorta measures2.07 x 2.13cm. in cross-sectional Peak systolic flow velocities within the proximal aorta axis. measure 49.8 cm/sec. Proximal aorta measures2.31cm. in longitudinal axis. Peak systolic flow velocities within the mid aorta measure Mid aorta measures2.91 x 2.98cm. in cross-sectional axis. 74.4 cm/sec. Mid aorta measures2.94cm. in longitudinal axis. Peak systolic flow velocities within the distal aorta Distal aorta measures3.65 x 3.69cm. in cross-sectional axis.measure 60.1 cm/sec. Distal aorta measures3.54cm. in longitudinal axis. Mural thrombus noted throughout mid and dist AO. Left Iliac Artery Left iliac artery measures 1.01 x 0.98 cm. in the cross-sectional axis. Left iliac artery measures 0.99 cm. in the longitudinal axis. Peak systolic velocity in the left iliac artery measures 151.7 cm/sec. Right Iliac Artery Right iliac artery measures 0.98 x 0.99 cm. in the cross-sectional axis. Right iliac artery measures 0.89 cm. in the longitudinal axis. Peak systolic velocity in the right iliac artery measures 142.3 cm/sec. VL/Abd Aortic/IVC Duplex scan Interpretation Summary Aneurysm at 3.65 x3.69cm. Ordering Physician: Praveen Mcdonough Referring Physician: Carlyle Ren Chi Performed By: Yuval Stover RVT and Student
--- NOTE | 2024-12-27 07:42 | ADU_ITS ---
Reason For Study Reason For Study: Stricture of Artery Right Velocities Left Velocities Ext. Iliac Artery, dist = 132.6 cm./sec. Ext Iliac Artery, dist = 98.4 cm./sec. Common Femoral Artery, mid = 128.9 cm./sec. Common Femoral Artery, mid = 131.5 cm./sec. Supf Femoral Artery, prox = 64.7 cm./sec. Supf. Femoral Artery, prox = 180.7 cm./sec. Focal Stenosis Noted at Mid SFA Focal Stenosis Noted at Mid SFA Pre Stenosis 103.9 cm/s Pre Stenosis 67.6 cm/s Stenosis 246.8 cm/s Stenosis 238.9 cm/s Post Stenosis 150.1 cm/s. Post Stenosis 70.2 cm/s Supf Femoral Artery, dist. = 42.9 cm./sec. Focal Stenosis Noted at Dist SFA Profunda Femoral Artery = 185.7 cm./sec. Pre Stenosis 70.2 cm/s Popliteal Artery, mid = 57.0 cm./sec. Stenosis 314.9 cm/s Post. Tibial Artery, prox = 40.5 cm./sec. Post Stenosis 54.2 cm/s. Post. Tibial Artery, mid = 40.5 cm./sec. Profunda Femoral Artery = 203.3 cm./sec. Post. Tibial Artery, dist = 29.8 cm./sec. Popliteal Artery, mid = 34.9 cm./sec. Peroneal Artery, prox = 26.7 cm./sec. Post. Tibial Artery, prox = 39.6 cm./sec. Peroneal Artery, mid = 25.1 cm./sec. Post Tibial Artery, mid = 41.5 cm./sec. Peroneal Artery,dist = 18.5 cm./sec. Post Tibial Artery, dist. = 36.7 cm./sec. Ant. Tibial Artery, prox = 54.9 cm./sec. Peroneal Artery, prox = 21.1 cm./sec. Ant. Tibial Artery, mid = 33.2 cm./sec. Peroneal Artery, mid = 20.6 cm./sec. Ant. Tibial Artery, dist = 29.2 cm./sec. Peroneal Artery,dist. = 18.6 cm./sec. Ant.Tibial Artery, prox = 28.2 cm./sec. Ant Tibial Artery, mid = 21.1 cm./sec. Ant. Tibial Artery, distal = 14.1 cm./sec. Procedure The exam was diagnostic. Exam performed in department. VL/US Art Duplex Bilat Lower Ext Interpretation Summary Bilateral femoral with moderate stenosis. Ordering Physician: Praveen Mcdonough Referring Physician: Carlyle Ren Chi Performed By: Yuval Stover RVT and Student
== END | disposition home or self-care (01) ==
LOC: CVS 07:40
PROVIDERS: PCP Family Medicine Geriatric Medicine; Referring Provider Surgery Vascular Surgery; Visit Provider Surgery Vascular Surgery
DX: I71.43 Infrarenal abdominal aortic aneurysm, without rupture (principal); I70.0 Atherosclerosis of aorta; I77.1 Stricture of artery; I70.213 Atherosclerosis of native arteries of extremities with intermittent claudication, bilateral legs; I10 Essential (primary) hypertension
CPT/HCPCS: 93922; 93925; 93978